=== PATIENT | female | born 1975 | race Caucasian/White ===

== ENCOUNTER → 2016-06-15 | Outpatient (CLI) | payer OTHER ==
[~2016-06-15] MED LIST: ALBUAER2 INH; ASPCH81; AZAT50TA17 PO; CALCTAB5 PO; CHOLTAB3 PO; CRF1 PO; CYM60 PO; GABA-113 PO; LSN25 PO; NXM/40 PO; QUET1TAB32 PO; SYN150 PO; TRAM-10 PO; TRAZ50TA35 PO; [UNRECOGNIZED DRUG - OTHER]
--- NOTE | 2016-06-15 09:54 | DIAGNOSTIC IMAGING REPORT ---
THYROID ULTRASOUND CLINICAL HISTORY: Hypothyroidism. Post ablation. Multiple thyroid nodules. COMPARISON STUDY: None. TECHNIQUE: Sonography of the thyroid gland was performed. FINDINGS: The right lobe measures 3.7 x 0.9 x 1.2 cm and the left lobe measures 4.2 x 1.1 x 1.2 cm. The gland is slightly small and heterogeneous. Note is made of a 2.9 x 1.7 x 1 cm solid nodule within the lower pole of the left lobe. This is slightly echogenic when compared to the background thyroid tissue. There is also a 0.9 x 0.5 x 0.4 cm right lobe thyroid nodule. The isthmus measures 0.2 cm in thickness. IMPRESSION: 1. Heterogeneous, somewhat diminutive thyroid gland. 2. Several thyroid nodules, including a 2.9 x 1.7 x 1 cm left lobe nodule. Ultrasound-guided fine needle aspiration of this nodule could be performed based on size criteria. Electronically signed by: Arnie Peña M.D. 06/15/2016 9:53 AM Dictated Date/Time: 06/15/2016 9:51 AM
== END | disposition home or self-care (01) ==
LOC: C.ULTR 08:57
PROVIDERS: ATTEND Internal Medicine Endocrinology, Diabetes & Metabolism
DX: E89.0 Postprocedural hypothyroidism (principal); E04.2 Nontoxic multinodular goiter

== ENCOUNTER → 2016-12-27 | Outpatient (CLI) | payer OTHER ==
[2016-12-27 14:58] LABS: ESTIMATED AVERAGE GLUCOSE 174 mg/dl; HA1C FLAG Normal (Normal)
[2016-12-27 15:09] LABS: ALT/SGPT 22 U/L (12-78); AST/SGOT 13 U/L (15-37); BLOOD UREA NITROGEN 8 mg/dl (7-18); BUN/CREATININE RATIO 10.2 (10-20); CARBON DIOXIDE 27 mmol/L (21-32); CHLORIDE 103 mmol/L (98-107); CREATININE 0.81 mg/dl (0.60-1.20); GLUCOSE 251 mg/dl (70-99); SODIUM 137 mmol/L (136-145)
[2016-12-27 15:20] LABS: ALKALINE PHOSPHATASE 63 U/L (45-117); THYROID STIMULATING HORMONE 0.594 uIu/ml (0.300-4.500)
== END | disposition home or self-care (01) ==
LOC: C.LAB1850 13:20
PROVIDERS: ATTEND Internal Medicine Endocrinology, Diabetes & Metabolism
DX: E78.5 Hyperlipidemia, unspecified (principal); R20.8 Other disturbances of skin sensation; E89.0 Postprocedural hypothyroidism; E11.42 Type 2 diabetes mellitus with diabetic polyneuropathy

== ENCOUNTER → 2017-05-24 | Outpatient (CLI) | payer OTHER ==
--- NOTE | 2017-05-24 08:02 | DIAGNOSTIC IMAGING REPORT ---
ULTRASOUND OF THE THYROID GLAND CLINICAL HISTORY: Thyroid nodule. Hypothyroidism post ablation. COMPARISON STUDY: Thyroid ultrasound dated 06/15/2016. TECHNIQUE: Real-time, grayscale, and color flow sonography of the thyroid gland is performed utilizing a high-frequency linear transducer. Images are reviewed in the transverse and longitudinal planes. FINDINGS: Right lobe: The right lobe of the thyroid gland is atrophic and heterogeneous in echotexture, measuring 3.4 x 1.0 x 0.9 cm. A hypoechoic nodule in the anterior midpole measures 0.7 x 0.4 x 0.5 cm (previously present but not discretely measured) Left lobe: The left lobe of the thyroid gland is atrophic and heterogeneous in echotexture, measuring 4.3 x 1.4 x 1.1 cm. A hypoechoic solid nodule in the lower pole measures 2.9 x 1.1 x 1.3 cm (previously measured 2.9 x 1.0 x 1.7 cm). This demonstrates minimal internal flow on color imaging. Isthmus: The thyroid isthmus is atrophic and heterogeneous, measuring 0.2 cm in AP diameter. IMPRESSION: 1. Atrophic and heterogeneous thyroid gland. 2. Bilateral thyroid nodules have not significantly changed from 06/15/2016. If not previously performed, fine-needle aspiration of the left sided nodule is recommended based on size criteria. Electronically signed by: Jamal Mckeon M.D. 05/24/2017 8:00 AM Dictated Date/Time: 05/24/2017 7:58 AM
== END | disposition home or self-care (01) ==
LOC: C.ULTR 07:28
PROVIDERS: ATTEND Internal Medicine Endocrinology, Diabetes & Metabolism
DX: E03.4 Atrophy of thyroid (acquired) (principal); E04.2 Nontoxic multinodular goiter; Z86.39 Personal history of other endocrine, nutritional and metabolic disease

== ENCOUNTER → 2017-10-19 | Outpatient (CLI) | payer OTHER ==
[2017-10-20 06:01] LABS: HEMOGLOBIN A1C 12.6 % (4.5-5.6)
== END | disposition home or self-care (01) ==
LOC: C.LAB1850 13:46
PROVIDERS: ATTEND Internal Medicine Endocrinology, Diabetes & Metabolism
DX: E78.5 Hyperlipidemia, unspecified (principal); E10.65 Type 1 diabetes mellitus with hyperglycemia

== ENCOUNTER 2020-09-19 05:57 | Observation (INO) ==
--- NOTE | 2020-09-05 16:12 | PAT Medication Instructions ---
Medication Instructions Date of Service September 05, 2020 Home Medications Medication Instructions Recorded insulin regular human 100 unit/mL See Rx Instructions .ROUTE 11/27/19 (3 mL) subcutaneous pen .COMPLEX #145 ml lidocaine 5 % topical patch 1 patch TOP DAILY #30 ea 11/27/19 pen needle, diabetic 32 gauge x #450 ea 12/03/19" Victoza 3-Teodoro 0.6 mg/0.1 mL (18 1.8 mg SUBCUT Q24H #9 ml NS 04/03/ mg/3 mL) subcutaneous pen injector ammonium lactate 12 % topical cream 1 appln TOP BID belimumab 120 mg intravenous solution 120 mg IV MONTHLY budesonide-formoterol HFA 160 mcg-4.5 mcg/actuation aerosol inhaler 2 puffs INH BID tramadol 50 mg tablet 50 - 100 mg PO Q6H PRN venlafaxine 150 mg capsule,extended release 24 hr 150 mg PO QAM venlafaxine 75 mg capsule,extended release 24 hr 75 mg PO QAM cholecalciferol (vitamin D3) 25 mcg (1,000 unit) capsule 6,000 units PO QAM insulin regular human 100 unit/mL (3 mL) subcutaneous pen See Rx Instructions .ROUTE .COMPLEX lidocaine 5 % topical patch 1 patch TOP DAILY Victoza 3-Teodoro 0.6 mg/0.1 mL (18 mg/3 mL) subcutaneous pen injector 1.8 mg SUBCUT Q24H insulin degludec 200 unit/mL (3 mL) subcutaneous pen 144 unit SQ QAM alpha lipoic acid 200 mg PO QAM atorvastatin 80 mg PO HS cyanocobalamin (vitamin B-12) [Vitamin B-12] 1,000 mcg PO QAM cyclobenzaprine [Flexeril] 10 mg PO TID PRN levothyroxine [Synthroid] 200 mcg PO QAM naproxen [Naprosyn] 500 mg PO BID PRN oxycodone-acetaminophen [Percocet] 1 tab PO QID PRN ropinirole 0.5 mg PO UD Continue as directed ammonium lactate 12 % topical cream 1 appln TOP BID belimumab 120 mg intravenous solution 120 mg IV MONTHLY lidocaine 5 % topical patch 1 patch TOP DAILY Victoza 3-Teodoro 0.6 mg/0.1 mL (18 mg/3 mL) subcutaneous pen injector 1.8 mg SUBCUT Q24H ASK your surgeon for instructions naproxen [Naprosyn] 500 mg PO BID PRN STOP taking 2 weeks before surgery (or as soon as possible if surgery is within 2 weeks) alpha lipoic acid 200 mg PO QAM DO NOT take the morning of surgery cholecalciferol (vitamin D3) 25 mcg (1,000 unit) capsule 6,000 units PO QAM insulin regular human 100 unit/mL (3 mL) subcutaneous pen See Rx Instructions .ROUTE .COMPLEX cyanocobalamin (vitamin B-12) [Vitamin B-12] 1,000 mcg PO QAM cyclobenzaprine [Flexeril] 10 mg PO TID PRN Take morning of surgery With a small sip of water, OTHERWISE NOTHING TO EAT OR DRINK AFTER MIDNIGHT: budesonide-formoterol HFA 160 mcg-4.5 mcg/actuation aerosol inhaler 2 puffs INH BID tramadol 50 mg tablet 50 - 100 mg PO Q6H PRN (okay to take up to 4 hours prior to surgery if needed) venlafaxine 150 mg capsule,extended release 24 hr 150 mg PO QAM venlafaxine 75 mg capsule,extended release 24 hr 75 mg PO QAM levothyroxine [Synthroid] 200 mcg PO QAM oxycodone-acetaminophen [Percocet] 1 tab PO QID PRN (okay to take up to 4 hours prior to surgery if needed) Take evening before surgery budesonide-formoterol HFA 160 mcg-4.5 mcg/actuation aerosol inhaler 2 puffs INH BID tramadol 50 mg tablet 50 - 100 mg PO Q6H PRN (if needed) atorvastatin 80 mg PO HS cyclobenzaprine [Flexeril] 10 mg PO TID PRN (if needed) oxycodone-acetaminophen [Percocet] 1 tab PO QID PRN (if needed) ropinirole 0.5 mg PO UD Insulin Dependent Diabetic Patients * Test your blood sugar the morning of surgery * If Blood Sugar is GREATER THAN 150, take HALF of your regular dose of: insulin degludec 200 unit/mL (3 mL) subcutaneous pen take 72 units * If Blood Sugar is LESS THAN 150, DO NOT TAKE ANY: insulin degludec 200 unit/mL (3 mL) subcutaneous pen Other Notes If you have any questions please call us at [phone] or [phone] or [phone] or [phone]
--- NOTE | 2020-09-08 12:44 | Anesthesiology Consultation ---
Date of Service September 08, 2020 Assessment & Plan (1) Encounter for pre-operative examination: COVID Status: As of 09/08 assessment, patient denies travel to endemic area, known exposure/sick contacts, or symptoms of COVID19. Patient advised to adhere to social distancing guidelines, wear a mask in public and avoid large crowds or unnecessary travel in the 2 weeks leading up to surgery. Preoperative COVID19 testing to be completed prior to surgery per surgeon's arrangements. Pat ient encouraged to be extra cautious/conscientious with COVID precautions between COVID testing and surgery. Abnormal CXR: Radiology recommending follow-up chest CT for clarification of abnormality (which Dr Le did order and schedule for the patient). However, patient had CTA on 09/03/2020 at [facility]. Discussed with radiologist, Dr. Mckeon. [facility] radiology attempting to send images to our radiology department for comparison and review. If unable to send them, Dr. Mckeon recommending that the [facility] radiologist re-review the CTA specifically evaluating for the abnormalities noted on our CXR. BSG AM DOS Chart Review Chart Review: Acceptable Risk for Surgery (pending radiology report) and Patient seen in Pre Admission Testing Teaching & Discussion Instructed NPO after midnight before surgery, except medications with 15 cc of water. Medication instructions provided according to the PAT guidelines. History Surgery Operation Date: 09/22/20 13:00 Proposed Procedures p C5-C6 Anterior Cervical Discectomy and Fusion, Spinal Cord Monitoring - Garrison Le, Height/Weight Height: 5 ft 10 in Weight: 113.9 kg Allergies Allergy/AdvReac Type Severity Reaction Status Date / Time No Known Drug Allergies Allergy Verified 09/05/20 07:37 Medications Home Medications Medication Instructions Recorded Confirmed Last Taken ammonium lactate 12 % topical cream 1 appln TOP BID 02/12/19 09/05/20 Unknown belimumab 120 mg intravenous 120 mg IV MONTHLY ea 02/12/19 09/05/20 Unknown solution budesonide-formoterol HFA 160 2 puffs INH BID 02/12/19 09/05/20 Unknown mcg-4.5 mcg/actuation aerosol inhaler tramadol 50 mg tablet 50 - 100 mg PO Q6H PRN 02/12/19 09/05/20 Unknown venlafaxine 150 mg 150 mg PO QAM 02/12/19 09/05/20 Unknown capsule,extended release 24 hr venlafaxine 75 mg capsule,extended 75 mg PO QAM 02/12/19 09/05/20 Unknown release 24 hr cholecalciferol (vitamin D3) 25 6,000 units PO QAM cap 07/26/19 09/05/20 Unknown mcg (1,000 unit) capsule insulin regular human 100 unit/mL See Rx Instructions .ROUTE 11/27/19 09/05/20 Unknown (3 mL) subcutaneous pen .COMPLEX #145 ml lidocaine 5 % topical patch 1 patch TOP DAILY #30 ea 11/27/19 09/05/20 Unknown pen needle, diabetic 32 gauge x #450 ea 12/03/19 07/25/20 Unknown " Victoza 3-Teodoro 0.6 mg/0.1 mL (18 1.8 mg SUBCUT Q24H #9 ml NS 04/03/20 09/05/20 Unknown mg/3 mL) subcutaneous pen injector insulin degludec 200 unit/mL (3 144 unit SQ QAM box 05/27/20 09/05/20 Unknown mL) subcutaneous pen alpha lipoic acid 200 mg PO QAM 09/05/20 09/05/20 Unknown atorvastatin 80 mg PO HS 09/05/20 09/05/20 Unknown cyanocobalamin (vitamin B-12) 1,000 mcg PO QAM 09/05/20 09/05/20 Unknown [Vitamin B-12] cyclobenzaprine [Flexeril] 10 mg PO TID PRN 09/05/20 09/05/20 Unknown levothyroxine [Synthroid] 200 mcg PO QAM 09/05/20 09/05/20 Unknown naproxen [Naprosyn] 500 mg PO BID PRN 09/05/20 09/05/20 Unknown oxycodone-acetaminophen [Percocet] 1 tab PO QID PRN 09/05/20 09/05/20 Unknown ropinirole 0.5 mg PO UD 09/05/20 09/05/20 Unknown Past Medical History Medical History Asthma Daily Symbicort, has not needed rescue ProAir in years Diabetic peripheral neuropathy associated with type 1 diabetes mellitus Dyslipidemia GERD (gastroesophageal reflux disease) History of COVID-19 06/2020 ache, pain, nausea, headache, loss smell and taste, quarantine had antibody infusion due to lupus History of hyperthyroidism Hypothyroidism, postablative Lupus Osteoarthritis PONV (postoperative nausea and vomiting) RLS (restless legs syndrome) Type 1 diabetes mellitus with complication Exercise / Class Metabolic Activity II 4-5 Yardwork/Stairs/Walk up hill (Mild SOB with 1 FOS but does not have to stop to catch breath, no chest pain, does stairs daily) Past Surgical History Surgical History History of lumbar fusion History of partial hysterectomy Hx laparoscopic cholecystectomy Hx of section x 2 Hx of tonsillectomy Hx of ventral hernia repair x 3 Past Anesthesia History No Hx of Anesthesia Complications (other than PONV) and No Family Hx of Anesthesia Complications (other than mother PONV) History of PONV No Hx of Motion Sickness and History of PONV Social History Smoking Status: Current every day smoker tobacco type: cigarettes Smoking cigarettes per day: 1/2 ppd Do You Dip or Chew Tobacco: No Hx Alcohol Use: No Hx Substance Use: No substance use type: does not use Review of Systems Pt denies any recent chest pain, shortness of breath, palpitations, cough, fever, URI, or uncontrolled acid reflux. Physical Exam Vital Signs BP: 130/82 P: 84bpm SPO2: 97% RA T: 98.4 F R: 16 Constitutional + obese ENMT Mouth: + macroglossia; no dental restorations, no chipped teeth and no loose teeth Thyromental Distance: > or= 3.5 Finger Breadths Mallampati Class: I Neck + limited neck extension (very) Respiratory normal respiratory effort, lungs clear to auscultation Cardiovascular RRR, no murmur, no edema Vessels: no carotid bruit Lab Results Anesthesia Preop Results Results Anesthesia Widget: PT 9.9 Seconds (9.0-12.0) 09/08/20 PTT 23.4 Seconds (21.0-31.0) 09/08/20 INR 1.0 (0.9-1.1) 09/08/20 HA1c 8.6 % (4.5-5.6) H 09/08/20 Urine Color Yellow 09/08/20 Urine Appearance Clear (Clear) 09/08/20 Urine pH 7.0 (4.5-7.5) 09/08/20 Urine Specific [place] 1.006 (1.000-1.030) 09/08/20 Urine Protein Negative (Negative) 09/08/20 Urine Glucose (UA) Negative (Negative) 09/08/20 Urine Ketones Negative (Negative) 09/08/20 Urine Blood Negative (Negative) 09/08/20 Urine Nitrite Negative (Negative) 09/08/20 Urine Bilirubin Negative (Negative) 09/08/20 Urine Urobilinogen Negative (Negative) 09/08/20 Urine Leukocyte Esterase Negative (Negative) 09/08/20 Blood Type O Positive 09/08/20 Antibody Screen NEGATIVE 09/08/20 Lab Comments: *Surgeons office made aware of elevated A1c. Testing Laboratory Results 09/03/20 WBC: 7.75 H/H: 13.3/39.7 PLATELETS: 321 SODIUM: 141 POTASSIUM: 3.9 CHLORIDE: 108 CO2: 28 BUN: 8.3 CREATININE: 0.74 GLUCOSE: 168 Electrocardiogram Date: 09/08/20 Findings: + NSR @ (82bpm) Chest X-Ray Date: 09/08/20 IMPRESSION: 1. No acute cardiopulmonary abnormality. 2. There is a lobulated density seen anteriorly at the lung bases on the lateral projection, likely on the left. 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 A chest CT is recommended for further assessment and to exclude underlying pulmonary or pleural-based lesion. ACT 112: Positive. There are findings on this exam that require communication between the performing entity and the patient following Patient Test Result Information Act ([place] Act 112) guidelines. Result called to Dr. Le's office, who ordered f/u chest CT for 09/15/20. Spoke to Dr. Mckeon of radiology re: these findings. Informed him that patient had chest CTA 09/03/2020. He suggested that if [facility] can send the images through the PACS system he will review those instead of having the patient come in for repeat chest CT. Spoke to [facility] radiology, they are to forward the images to [facility] (will be sent via mail as they are apparently unable to send via PACs system). Radiology notified to have Dr. Mckeon review images and append summary. Other Testing Chest CTA 09/03/2020 No evidence of pulmonary embolus or other acute intrathoracic abnormality.
[2020-09-19] MEDS ORDERED: ACETAMINOPHEN 500 MG TAB PO SCH (06:00)
[2020-09-19] MEDS ORDERED: CeleBREX 200 MG CAP PO SCH (06:00)
[2020-09-19] MEDS ORDERED: GABAPENTIN 900 MG DOSE PO SCH (06:00)
[2020-09-19] MEDS ORDERED: ceFAZolin 2000MG 2,000 MG/15 ML SYR IV SCH (06:00)
[2020-09-19] MEDS ORDERED: Scopolamine 1 MG TDSY TD SCH (06:00)
[2020-09-19] MEDS ORDERED: LR 15ML/HR IV SCH (06:45)
[2020-09-19] MEDS ORDERED: fentaNYL citrate 100 MCG/2 ML VIAL ONE ×2 (06:51→08:16)
[2020-09-19] MEDS ORDERED: LIDOCAINE 2% 2 ML VIAL/AMP(20MG/ML) INFIL ONE (06:51)
[2020-09-19] MEDS ORDERED: ONDANSETRON INJ 2 MG/ML 2 ML VIAL ONE ×2 (06:51→08:22)
[2020-09-19] MEDS ORDERED: PROPOFOL IV EMULSION 10 MG/ML 20 ML VIAL IV ONE (06:51)
[2020-09-19] MEDS ORDERED: MIDAZOLAM HCL 1 MG/ML 2ML VIAL ONE (06:51)
[2020-09-19] MEDS ORDERED: ROCURONIUM BROMIDE 10 MG/ML 5 ML VIAL IV ONE (06:51)
--- NOTE | 2020-09-19 07:34 | History & Physical Bridge Note ---
Date of Service September 19, 2020 History & Physical Bridge Note I have examined the patient, reviewed the History & Physical and in the interval since the performance of the History & Physical I have noted the following changes of clinical significance: no changes noted
--- NOTE | 2020-09-19 07:36 | History & Physical Report ---
Date of Service September 19, 2020 Assessment & Plan (1) Cervical stenosis of spinal canal: Admission and Anticipated Discharge Date Admission Date: C5-C6 anterior cervical discectomy and fusion History of Present Illness Chief Complaint: Neck and arm pain Primary Care Provider: Ghassan Valentine This is a 45-year-old female presents with chronic persistent neck and arm pain. Failing since course of nonoperative care she is here for surgical invention. Allergies Allergy/AdvReac Type Severity Reaction Status Date / Time No Known Drug Allergies Allergy Verified 09/19/20 06:28 Home Medications Medication Instructions Recorded Confirmed Type ammonium lactate 12 % topical cream 1 appln TOP BID PRN 02/12/19 09/19/20 History belimumab 120 mg intravenous 120 mg IV MONTHLY ea 02/12/19 09/19/20 History solution budesonide-formoterol HFA 160 2 puffs INH BID 02/12/19 09/19/20 History mcg-4.5 mcg/actuation aerosol inhaler tramadol 50 mg tablet 50 - 100 mg PO Q6H PRN 02/12/19 09/19/20 History venlafaxine 150 mg 150 mg PO QAM 02/12/19 09/19/20 History capsule,extended release 24 hr venlafaxine 75 mg capsule,extended 75 mg PO QAM 02/12/19 09/19/20 History release 24 hr cholecalciferol (vitamin D3) 25 6,000 units PO QAM cap 07/26/19 09/19/20 History mcg (1,000 unit) capsule insulin regular human 100 unit/mL See Rx Instructions .ROUTE 11/27/19 09/19/20 Rx (3 mL) subcutaneous pen .COMPLEX #145 ml lidocaine 5 % topical patch 1 patch TOP DAILY #30 ea 11/27/19 09/19/20 Rx pen needle, diabetic 32 gauge x #450 ea 12/03/19 07/25/20 Rx 5/32" insulin degludec 200 unit/mL (3 144 unit SQ QAM box 05/27/20 09/19/20 History mL) subcutaneous pen alpha lipoic acid 200 mg PO QAM 09/05/20 09/19/20 History atorvastatin 80 mg PO HS 09/05/20 09/19/20 History cyanocobalamin (vitamin B-12) 1,000 mcg PO QAM 09/05/20 09/19/20 History [Vitamin B-12] levothyroxine [Synthroid] 200 mcg PO QAM 09/05/20 09/19/20 History naproxen [Naprosyn] 500 mg PO BID PRN 09/05/20 09/19/20 History oxycodone-acetaminophen [Percocet] 1 tab PO QID PRN 09/05/20 09/19/20 History ropinirole 0.5 mg PO UD 09/05/20 09/19/20 History Victoza 3-Teodoro 0.6 mg/0.1 mL (18 1.8 mg SUBCUT Q24H #18 ml NS 09/15/20 09/19/20 Rx mg/3 mL) subcutaneous pen injector cyclobenzaprine 10 mg tablet 10 mg PO TID PRN #90 tab 09/17/20 09/19/20 Rx lisinopril 2.5 mg PO QPM 09/19/20 09/19/20 History Past Med/Surg History Medical History (Updated 09/19/20 @ 07:36 by Garrison Le DO) Asthma Daily Symbicort, has not needed rescue ProAir in years Diabetic peripheral neuropathy associated with type 1 diabetes mellitus Dyslipidemia GERD (gastroesophageal reflux disease) History of COVID-19 06/2020 ache, pain, nausea, headache, loss smell and taste, quarantine had antibody infusion due to lupus History of hyperthyroidism Hypothyroidism, postablative Lupus Osteoarthritis RLS (restless legs syndrome) Type 1 diabetes mellitus with complication Surgical History History of lumbar fusion History of partial hysterectomy Hx laparoscopic cholecystectomy Hx of section x 2 Hx of tonsillectomy Hx of ventral hernia repair x 3 PONV (postoperative nausea and vomiting) Social History Smoking Status: Current every day smoker packs per day: 0.5; Cigarettes Per Day: 1/2 ppd; Second Hand Exposure: No; Do You Dip or Chew Tobacco: No; Tobacco Cessation Education Requested by Patient: No Hx Alcohol Use: No Hx Substance Use: No Preferred Language: Khmer Communication Ability: Effective Handicraft Or Hobby Shop Manager Required: No Beliefs That Will Affect Care: None Current Living Situation: Spouse Other Information That Helps Us Care for You: No Feels Safe at Home: Yes Safety Concerns: Feels Safe At This Time Assistive Devices: Glasses Physical Exam Physical Exam: Patient is alert and oriented Heart regular rate and rhythm Lungs clear to auscultation Results & Data ([facility]) Vital Signs (Past 12 Hours) Vital Signs Temp Pulse Resp BP Pulse Ox 09/19/20 06:43 37 C 96 H 20 152/82 H 98
[2020-09-19] MEDS ORDERED: FLOSEAL HEMOSTATIC MATRIX 10ML TOP ONE (08:29)
[2020-09-19] MEDS ORDERED: NEOSTIGMINE METHYLSULFATE 1 MG/ML 10ML VIAL ONE (09:02)
[2020-09-19] MEDS ORDERED: GLYCOPYRROLATE 0.2 MG/ML VIAL ONE (09:02)
--- NOTE | 2020-09-19 09:02 | Operative Report ---
Post Operative Report Pre & Post Diagnosis Operation Date: 09/19/20 07:45 Pre-Op Diagnosis: Spinal Stenosis, Cervical Region Post-Op Diagnosis: Spinal Stenosis, Cervical Region I identified the patient and participated in the time-out.: Yes Procedure Operation Date: 09/19/20 07:45 Actual Procedures #1 Intracervical discectomy with bilateral foraminotomies C5-C6. #2 intracervical arthrodesis C5-C6. #3 placement of 7 mm spiral cage filled I factor at C5-C6. #4 application of bassett plate and screws across C5-C6. Surgeon Garrison Le, Lamination Assembler Wilson Mckenzie Estimated Blood Loss 10 Findings See Below Patient is 5 foot 10 inches tall weighing over 111 kg with a BMI in excess of 35. Patient's body habitus did create significant technical difficulty requiring her deepest retractors and longus instruments in order to perform her procedure. This at least 50% increase to the operative time. Specimens None Indications This is a 45-year-old female with significant arm radiculopathy after failing course of nonoperative care she is here for the above-mentioned procedure. Description of Procedure Patient met with identified informed consent obtained. Patient was then taken to the operative suite underwent ablation placed in the supine position Declan table with head Guardado jackson. All bony prominences well-padded eyes inspected to ensure no external proximal spine. This point anterior cervical spine was prepped and draped in a sterile fashion. The assistance of fluoroscopy verified the C5-C6 disc base and a transverse incision was placed along the right anterior aspect of the cervical spinal lines region. Sharp dissection with the assistance of bipolar electrocautery as well down to expose the anterior cervical spine at C5-C6. Several 10 retractors placed. Then performed a complete discectomy of C5-C6 out to the uncovertebral's bilaterally. This included removal of all posterior annular fibers longitudinal ligament bilateral foraminotomies performed addressing large disc herniation. Endplates then burred to subcortically bone and 7 mm spiral cage filled with I factor tapped in position. [place] distracting apparatus was removed all anterior osteophytes burred to a smooth cortical surface and a bassett plate and screws applied with the assistance of fluoroscopy. The incision was then copiously irrigated explored to ensure no damage to surrounding structures remaining bleeding. 10 round CONNOR drain inserted. The incision was then closed with 2 Vicryl in a fashion of 4 Monocryl for final closure. Steri-Strip sterile dressings placed. Patient will continue PACU stable condition. Please note spinal cord monitoring was utilized at the procedure no changes noted. Lastly Wilson Mckenzie was present at the entire procedure and all the patient positioning complex portions of the surgery and final skin closure. I attest to the content of the Intraoperative Record and any orders documented therein. Any exceptions are noted below.
[2020-09-19] MEDS ORDERED: ONDANSETRON INJ 2 MG/ML 2 ML VIAL IV PRN ×2 (09:03→10:46)
[2020-09-19] MEDS ORDERED: FLUMAZENIL 0.1 MG/1 ML 10 ML VIAL IV PRN (09:03)
[2020-09-19] MEDS ORDERED: LABETALOL HCL IV 5 MG/ML 20ML IV PRN (09:03)
[2020-09-19] MEDS ORDERED: HYDROmorphone INJ 1 MG/ML SYRINGE IV PRN (09:03)
[2020-09-19] MEDS ORDERED: PROMETHAZINE HCL 12.5 MG in SODIUM CHLORIDE 0.9% 50 ML IV PRN ×2 (09:03→10:46)
[2020-09-19] MEDS ORDERED: ATROPINE SULFATE 0.1 MG/ML 10ML SYR IV PRN (09:03)
[2020-09-19] MEDS ORDERED: NALOXONE HCL 0.4 MG/1 ML VIAL/CARP IV PRN ×2 (09:03→10:46)
[2020-09-19] MEDS ORDERED: ePHEDrine sulfate 50 MG/ML AMP IV PRN (09:03)
[2020-09-19] MEDS: fentaNYL citrate 100 MCG/2 ML VIAL IV PRN ×4 (09:23→09:38)
--- NOTE | 2020-09-19 10:15 | Anesthesiology Progress Note ---
Date of Service September 19, 2020 Anesthesia Post Procedure Vital Signs Vital Signs: Temp Pulse Pulse Resp BP BP Pulse Ox 09/19/20 10:05 36.4 C L 91 H 15 141/81 H 95 09/19/20 09:55 92 H 14 146/82 H 94 09/19/20 09:45 91 H 14 125/94 94 09/19/20 09:35 96 H 16 143/78 H 93 09/19/20 09:25 99 H 17 137/72 93 09/19/20 09:17 36.7 C 103 H 19 128/68 93 09/19/20 06:43 37 C 96 H 20 152/82 H 98 Pain Intensity Left Neck: Pain Intensity: 8 Transfer of Care Handoff Completed per policy Notes Mental Status: alert / awake / arousable Patient Amnestic to Procedure: Yes Nausea / Vomiting: adequately controlled Pain: adequately controlled Airway Patency, RR, SpO2: stable & adequate BP & HR: stable & adequate Hydration State: stable & adequate Anesthetic Complications: no major complications apparent
--- NOTE | 2020-09-19 10:24 | Fluoroscopy Report ---
FL cervical 2-3V CLINICAL HISTORY: ACDF C5-C6 COMPARISON STUDY: None. FLUOROSCOPY TIME: 12 seconds. FLUOROSCOPIC IMAGES: 3 FINDINGS: Fluoroscopy was provided during C5-C6 anterior discectomy and fusion. Hardware is intact. A sponge marker shown on the first two images is not present on the final image obtained at 9:13 AM. E ndotracheal tube is partially imaged. Surgical drain is in place. IMPRESSION: Fluoroscopy provided during C5-C6 anterior discectomy and fusion. ACT 112: Negative or not required by law. Electronically signed by: Arnie Peña M.D. 09/19/2020 10:22 AM
[2020-09-19] MEDS ORDERED: FAMOTIDINE 20 MG TAB PO PRN (10:46)
[2020-09-19] MEDS ORDERED: diphenhydrAMINE Capsule 25 MG CAP PO PRN (10:46)
[2020-09-19] MEDS ORDERED: LORazepam 0.5 MG/1 ML VIAL IV PRN (10:46)
[2020-09-19] MEDS ORDERED: METOCLOPRAMIDE HCL INJ 5 MG/ML 2 ML VIAL IV PRN (10:46)
[2020-09-19] MEDS ORDERED: hydrOXYzine HCl 25 MG TAB PO PRN (10:46)
[2020-09-19] MEDS ORDERED: MAGNESIUM HYDROXIDE SUSP 30 ML UDC PO PRN (10:46)
[2020-09-19] MEDS ORDERED: ONDANSETRON 4 MG OD TAB PO PRN (10:46)
[2020-09-19] MEDS ORDERED: traMADol HCL 50 MG TABLET PO PRN (10:46)
[2020-09-19] MEDS ORDERED: RACEPINEPHRINE 2.25% NEBU SOLN 0.5 ML VIAL INH PRN (10:46)
[2020-09-19] MEDS ORDERED: LORazepam 0.5 MG TAB PO PRN (10:46)
[2020-09-19] MEDS ORDERED: DO NOT ADMINISTER FLU VACCINE PRN (10:46)
[2020-09-19] MEDS ORDERED: dexAMETHasone 8 MG in SYRINGE 0 ML IV PRN (10:46)
[2020-09-19] MEDS ORDERED: ACETAMINOPHEN 1,000 MG/100 ML VIAL IV PRN (10:46)
[2020-09-19] MEDS ORDERED: SOD PHOSPHATE/SOD BIPHOSPHATE ENEMA 132 ML BTL PR PRN (10:46)
[2020-09-19] MEDS ORDERED: DO NOT ADMINISTER PNEUMOCOCCAL VACCINE PRN (10:46)
[2020-09-19] MEDS ORDERED: ACETAMINOPHEN 500 MG TAB PO PRN (10:46)
[2020-09-19] MEDS ORDERED: ALUMINUM/MAGNESIUM SUSP 30 ML UDC PO PRN (10:46)
[2020-09-19] MEDS: SODIUM CHLORIDE 0.9% 1000ML 1,000 ML IV SCH ×3 (10:50→23:41)
--- NOTE | 2020-09-19 11:58 | Hospitalist Consultation ---
Date of Consultation September 19, 2020 Assessment & Plan (1) Cervical stenosis of spinal canal: - s/p cervical discectomy of C5-C6 by Dr. Le on 09/19/20 - Pain management, bowel regimen and per the primary team - PT/OT consults, pt is planning on outpatient therapy - Follow am CBC to monitor for acute blood loss - Currently on oximask with O2 at 2L, does not wear O2 at baseline (2) Type 1 diabetes mellitus, uncontrolled: -Last A1c = 8.6 on 09/08/2020 -ISS with Accu-Cheks AC at bedtime -Consult glycemic pharmacy for glucose control in the setting of acute surgical procedure, intraoperative steroid -Takes Tresiba 200 unit/mL 136 U SQ every morning, Victoza 1.8 U SQ every morning, took half doses this morning. -Continue lisinopril 2.5 mg daily for kidney protection (3) Diabetic peripheral neuropathy associated with type 1 diabetes mellitus: -History of such, continue (4) Dyslipidemia: -Continue atorvastatin 80 mg at bedtime (5) Hypothyroidism, postablative: -Continue levothyroxine 200 mcg daily (6) Obesity: -BMI of 35.1, diet and exercise to be encouraged DVT PPx: - teds, scds CODE: DNR/DNI - discussed with the patient at bedside Dispo: From home, likely to remain in the hospital x 1-2 days Supervising Physician Co-Signing Physician Notes Care coordinated with Love Sarabia PA-C. Agree with able note. Patient seen and examined. Please refer to her notes for full details. Vital signs reviewed. Physical exam: General exam: Alert and oriented. Not in acute distress. Neck In neck collar CVS: S1 and S2 heard, regular rate and rhythm, no murmurs. RS: Clear to auscultation, no wheezing or crackles. ABD: Soft, bowel sounds present, nontender, no distention. ORGANIZATIONAL EFFECTIVENESS CONSULTANT: Nonfocal. EXT: No edema, no erythema. Labs: Reviewed. Assessment and plan: 45F with hx of DM, LANDRY, hypothyroidism s/p cervical surgery. Cervical disectomy on neck collar further mangemnet as per ortho. DM1 ISs long acting insulin as per pharmacy pharmacy consulted will monitor Other diagnosis and plan of care as per LAVERN Smith MD. History of Present Illness Reason for Consultation: Medical management Requesting Physician: Dr. Le Attending Physician: Garrison Le, DO History of Present Illness This is a 45-year-old female with PMHx of asthma, DM type I, diabetic peripheral neuropathy, HLD, history of Covid infection in June 2020, Lupus, GERD, osteoarthritis, restless leg syndrome, post ablative hypothyroidism who presents to the ER for elective intracervical discectomy with bilateral foraminotomies C5C6 by Dr. Le on 09/19/2020. Pt is doing ok after surgery, she reports her pain in the back of her neck is a 7/10 currently, although intermittently falls asleep during our conversation. She is able to wiggle her hands and her toes and move her legs without any difficulty. She has no decreased sensation to light touch. Patient reports that she lives at home with her and her 2 daughters. Patient notes she takes Tresiba 136 units daily, and Victoza 1.8 units daily normally, but today she took half these doses as directed prior to surgery. She does not wear any oxygen at baseline however is currently on 2 L via oxygen mask. Heart rate is elevated at 95 at bedside. She denies any chest pain, palpitation, flutter, or shortness of breath. She reports her mouth is dry. Denies other acute complain ts. Anticipates home physical therapy after hospital stay. Code status discussed as there was not a code ordered - she does NOT want to have CPR, intubation, etc in the event of cardiac arrest. Pt is DNR/DNI. Allergies Allergy/AdvReac Type Severity Reaction Status Date / Time No Known Drug Allergies Allergy Verified 09/19/20 06:28 Home Medications Medication Instructions Recorded Confirmed Type ammonium lactate 12 % topical cream 1 appln TOP BID PRN 02/12/19 09/19/20 History belimumab 120 mg intravenous 120 mg IV MONTHLY ea 02/12/19 09/19/20 History solution budesonide-formoterol HFA 160 2 puffs INH BID 02/12/19 09/19/20 History mcg-4.5 mcg/actuation aerosol inhaler tramadol 50 mg tablet 50 - 100 mg PO Q6H PRN 02/12/19 09/19/20 History venlafaxine 150 mg 150 mg PO QAM 02/12/19 09/19/20 History capsule,extended release 24 hr venlafaxine 75 mg capsule,extended 75 mg PO QAM 02/12/19 09/19/20 History release 24 hr cholecalciferol (vitamin D3) 25 6,000 units PO QAM cap 07/26/19 09/19/20 History mcg (1,000 unit) capsule insulin regular human 100 unit/mL See Rx Instructions .ROUTE 11/27/19 09/19/20 Rx (3 mL) subcutaneous pen .COMPLEX #145 ml lidocaine 5 % topical patch 1 patch TOP DAILY #30 ea 11/27/19 09/19/20 Rx pen needle, diabetic 32 gauge x #450 ea 12/03/19 07/25/20 Rx " insulin degludec 200 unit/mL (3 144 unit SQ QAM box 05/27/20 09/19/20 History mL) subcutaneous pen alpha lipoic acid 200 mg PO QAM 09/05/20 09/19/20 History atorvastatin 80 mg PO HS 09/05/20 09/19/20 History cyanocobalamin (vitamin B-12) 1,000 mcg PO QAM 09/05/20 09/19/20 History [Vitamin B-12] levothyroxine [Synthroid] 200 mcg PO QAM 09/05/20 09/19/20 History naproxen [Naprosyn] 500 mg PO BID PRN 09/05/20 09/19/20 History oxycodone-acetaminophen [Percocet] 1 tab PO QID PRN 09/05/20 09/19/20 History ropinirole 0.5 mg PO UD 09/05/20 09/19/20 History Victoza 3-Teodoro 0.6 mg/0.1 mL (18 1.8 mg SUBCUT Q24H #18 ml NS 09/15/20 09/19/20 Rx mg/3 mL) subcutaneous pen injector cyclobenzaprine 10 mg tablet 10 mg PO TID PRN #90 tab 09/17/20 09/19/20 Rx lisinopril 2.5 mg PO QPM 09/19/20 09/19/20 History oxycodone 5 mg PO Q6H PRN #20 tab 09/19/20 Rx tramadol 50 mg PO Q6H PRN #20 tab 09/19/20 Rx Patient History Medical History (Updated 09/19/20 @ 07:36 by Garrison Le DO) Asthma Daily Symbicort, has not needed rescue ProAir in years Diabetic peripheral neuropathy associated with type 1 diabetes mellitus Dyslipidemia GERD (gastroesophageal reflux disease) History of COVID-19 06/2020 ache, pain, nausea, headache, loss smell and taste, quarantine had antibody infusion due to lupus History of hyperthyroidism Hypothyroidism, postablative Lupus Osteoarthritis RLS (restless legs syndrome) Type 1 diabetes mellitus with complication Surgical History History of lumbar fusion History of partial hysterectomy Hx laparoscopic cholecystectomy Hx of section x 2 Hx of tonsillectomy Hx of ventral hernia repair x 3 PONV (postoperative nausea and vomiting) Social History Smoking Status: Current every day smoker packs per day: 0.5; Cigarettes Per Day: 1/2 ppd; Second Hand Exposure: No; Do You Dip or Chew Tobacco: No; Tobacco Cessation Education Requested by Patient: No Hx Alcohol Use: No Hx Substance Use: No Preferred Language: Romanian Communication Ability: Effective Commercial [employer] Head Required: No Beliefs That Will Affect Care: None marital status: Current Living Situation: Spouse Other Information That Helps Us Care for You: No Feels Safe at Home: Yes Safety Concerns: Feels Safe At This Time Assistive Devices: None Review of Systems Review of Systems: Constitutional: No fever, sweats or chills, as per HPI, + posterior neck pain status post surgery Eyes: No diplopia, no worsening or blurred vision ENT: normal hearing, no trouble swallowing Respiratory: No cough, sputum, dyspnea at rest or on exertion Cardiovascular: No chest pain, tightness or palpitations Abdomen: No pain, nausea, vomiting, diarrhea or constipation Musculoskeletal: No joint pain, calf pain, swelling Neurologic: No weakness, numbness/tingling, or balance problems Psychiatric: No anxiety or depression Skin: No rash or itch Physical Exam 2 Physical Exam: General: awakens to verbal stimuli but falls asleep intermittently during exam, able to answer all my questions, no apparent distress, 5' 10", obese BMI 35.1 Head: Normocephalic, atraumatic ENT: PERRL, EOMI, no pharyngeal exudate, mucous membranes dry, oximask in place Chest: Clear to auscultation, oximask in place on 2L, no adventitious breath sounds Cardiac: Sinus tach with heart rate in mid 90s, no murmur, no JVD, normal peripheral pulses, good capillary refill Abdominal: NABS x 4 quadrants, soft, nondistended, nontender to palpation, no rebound or guarding Extremities: Normal inspection, no peripheral edema or erythema, calfs nontender to palpation Psych: Normal mood and affect Neuro: AAO x 3, strength intact bilaterally and rated 5/5, no motor deficits, speech is clear, no peripheral sensory deficits Results & Data Results & Data ([facility]) Vital Signs (Past 12 Hours) Vital Signs Temp Pulse Pulse Pulse Resp BP BP 09/19/20 11:33 36.9 C 95 H 16 133/70 09/19/20 11:17 97 H 16 09/19/20 11:05 36.9 C 97 H 16 129/70 09/19/20 10:35 37.0 C 94 H 16 148/77 H 09/19/20 10:15 92 H 17 142/78 H 09/19/20 10:05 36.4 C L 91 H 15 141/81 H 09/19/20 09:55 92 H 14 146/82 H 09/19/20 09:45 91 H 14 125/94 09/19/20 09:35 96 H 16 143/78 H 09/19/20 09:25 99 H 17 137/72 09/19/20 09:17 36.7 C 103 H 19 128/68 09/19/20 06:43 37 C 96 H 20 152/82 H Pulse Ox Pulse Ox 09/19/20 11:33 97 09/19/20 11:17 95 09/19/20 11:05 92 09/19/20 10:35 95 95 09/19/20 10:15 95 09/19/20 10:05 95 09/19/20 09:55 94 09/19/20 09:45 94 09/19/20 09:35 93 09/19/20 09:25 93 09/19/20 09:17 93 09/19/20 06:43 98 Diagnostic Findings Cervical Spine X-Ray 09/19/20 07:45 [place] cervical 2-3V CLINICAL HISTORY: ACDF C5-C6 COMPARISON STUDY: None. FLUOROSCOPY TIME: 12 seconds. FLUOROSCOPIC IMAGES: 3 FINDINGS: Fluoroscopy was provided during C5-C6 anterior discectomy and fusion. Hardware is intact. A sponge marker shown on the first two images is not present on the final image obtained at 9:13 AM. Endotracheal tube is partially imaged. Surgical drain is in place. IMPRESSION: Fluoroscopy provided during C5-C6 anterior discectomy and fusion. ACT 112: Negative or not required by law. Electronically signed by: Arnie Peña M.D. 09/19/2020 10:22 AM
[2020-09-19] MEDS: oxyCODONE HCL IR 5 MG TAB (IMMEDIATE RELEASE) PO PRN ×2 (12:18→23:52)
[2020-09-19] MEDS ORDERED: PHARMACY GLYCEMIC MGMT CONSULT PRN (12:34)
[2020-09-19] MEDS: HYDROmorphone INJ 1 MG/ML SYRINGE IV PRN ×3 (13:05→19:53)
[2020-09-19] MEDS ORDERED: GLUCOSE 10 TABS/TUBE PO PRN (13:30)
[2020-09-19] MEDS ORDERED: INSULIN GLARGINE 100 UNIT/ML VIAL SC ONE ×3 (13:30→13:31)
[2020-09-19] MEDS ORDERED: GLUCOSE 40% GEL 15 GM TUBE PO PRN (13:30)
[2020-09-19] MEDS ORDERED: CARBOHYDRATES FOR HYPOGLYCEMIA PO PRN (13:30)
[2020-09-19] MEDS ORDERED: GLUCAGON FOR INJ 1 MG VIAL IM PRN (13:30)
--- NOTE | 2020-09-19 13:53 | Pharmacy Report ---
Pharmacy Glycemic Short Note 2 - Date of Service September 19, 2020 - Glycemic Short BSG Results (Last 24 hours): 09/19/20 09/19/20 09/19/20 06:30 09:26 12:13 POC Glucose 197 H 206 H 238 H OUTPATIENT ANTIDIABETIC REGIMEN: * Tresiba 144 units SC daily * Novolin R TIDM (up to 160 units/day) - patient stated that she typically guesses based on how much she eats but couldn't tell me specifics besides not exceeding ~40 units per injection * Victoza 1.8 mg SC daily * Patient follows with [place] end[facility] * HbA1c: 8.6% (09/08/20) ASSESSMENT: * JOHNNIE is a 45 year old female POD #0 s/p C5-C6 discectomy/fusion * Patient stated that she took 1/2 of her home Tresiba dose yesterday and took no insulin this morning * Seems to be a misunderstanding of the directions, as this 1/2 dose should have been given this morning not yesterday morning * Patient did state confidently that she did not give herself any insulin yet today * BSG postoperatively is 238 mg/dL - likely due to basal deficiency given inadequate dose yesterday and this morning * Will give 110 units of Lantus now with aggressive Novolog parameters and overnight checks * Hesitant to give full outpatient dose in light of clear liquid diet, despite inadequate basal dose yesterday PLAN FOR INPATIENT GLYCEMIC CONTROL: * Hold Tresiba * Basal insulin * Lantus 110 units SQ x 1 now (~75% of home dose) * Bolus insulin * NovoLog per scale ACHS or Q6hrs while NPO * Goal Range: Low 110 mg/dL - High 140 mg/dL * Correction Factor: 10 mg/dL/unit * Nutritional / Prandial insulin per carb ratio of 1 unit per 3 grams CHO consumed * 00,04 checks with same parameters PLAN FOR DISCHARGE: * tbd
[2020-09-19] MEDS: INSULIN ASPART 100 UNITS/ML 3 ML PEN SC SCH ×3 (14:01→21:00)
[2020-09-19] MEDS: ceFAZolin 2000MG 2,000 MG/15 ML SYR IV SCH ×2 (15:20→23:38)
[2020-09-19] MEDS: Scopolamine CHECK PATCH PLACEMENT SCH ×2 (15:29→23:38)
[2020-09-19] MEDS ORDERED: COUGH DROP (SUGAR FREE) LOZ 24 LOZ/1 BOX BUCCAL PRN (16:41)
[2020-09-19] MEDS: rOPINIRole HCL 0.25 MG TABLET PO SCH (19:54)
[2020-09-19] MEDS: DEXTROSE 50% 50 ML SYRINGE IV PRN (21:06)
[2020-09-19] MEDS: lisinopril 2.5 MG TAB PO SCH (21:57)
[2020-09-19] MEDS: ATORVASTATIN 40 MG TAB PO SCH (21:57)
[2020-09-19] MEDS: DOCUSATE SODIUM/SENNA 50/8.6MG TAB PO SCH (21:57)
[2020-09-20] MEDS: INSULIN ASPART 100 UNITS/ML 3 ML PEN SC SCH ×6 (00:01→21:26)
[2020-09-20] MEDS: HYDROmorphone INJ 0.5 MG/0.5 ML SYR IV PRN ×2 (04:44→08:01)
[2020-09-20] MEDS: POLYETHYLENE (MIRALAX) 17 GM PACK PO SCH ×3 (05:41→18:08)
[2020-09-20] MEDS: LEVOTHYROXINE SODIUM 200 MCG TABLET PO SCH (05:41)
[2020-09-20 06:01] LABS: Basophils # (auto) 0.01 K/uL (0-0.2); Basophils % (auto) 0.1 %; Hematocrit (blood only) 37.1 % (37-47); Hemoglobin 12.3 g/dL (12.0-16.0); Immature Granulocytes # (auto) 0.01 K/uL (0.00-0.02); Immature Granulocytes % (auto) 0.1 %; Lymphocytes % (auto) 33.1 %; Mean Corpuscular Hemoglobin 31.6 pg (25-34); Mean Corpuscular Hgb Conc 33.2 g/dL (32-36); Mean Corpuscular Volume 95.4 fL (80-100); Mean Platelet Volume 9.4 fL (7.4-10.4); Monocytes # (auto) 0.62 K/uL (0.11-0.59); Monocytes % (auto) 6.9 %; Neutrophils # (auto) 5.41 K/uL (1.4-6.5); Neutrophils % (auto) 59.8 %; Platelet Count 315 K/uL (130-400); RDW Coefficient of Variation 13.3 % (11.5-14.5); RDW Standard Deviation 46.2 fL (36.4-46.3); Red Blood Count 3.89 M/uL (4.2-5.4); White Blood Count 9.05 K/uL (4.8-10.8)
[2020-09-20] MEDS: DEXTROSE 50% 50 ML SYRINGE IV PRN ×3 (06:09→10:24)
[2020-09-20 06:26] LABS: BUN Creatinine Ratio 11.8 (10-20); Calcium 8.1 mg/dl (8.5-10.1); Creatinine Clr Calc Pharmacy 175.7 ml/min; Est GFR (African American) 131.2 ml/min; Est GFR (Non-African American) 113.2 ml/min; Magnesium 1.7 mg/dl (1.8-2.4); Potassium 3.3 mmol/L (3.5-5.1)
[2020-09-20 06:31] LABS: Estimated Average Glucose 194 mg/dl; Hemoglobin A1C 8.4 % (4.5-5.6)
[2020-09-20] MEDS: Scopolamine CHECK PATCH PLACEMENT SCH ×3 (07:48→23:53)
[2020-09-20] MEDS: VENLAFAXINE HCL XR 75 MG CAPXR PO SCH (08:08)
[2020-09-20] MEDS: FLUTICASONE/VILANTEROL 200/25MCG 14 PUFFS/INHALER INH SCH (08:08)
[2020-09-20] MEDS: VENLAFAXINE HCL XR 150 MG CAPXR PO SCH (08:08)
[2020-09-20] MEDS: CHOLECALCIFEROL 1,000 UNITS 25 MCG TAB PO SCH (08:08)
[2020-09-20] MEDS ORDERED: POTASSIUM CHLORIDE CRTAB 20 MEQ TABCR PO ONE (09:19)
[2020-09-20] MEDS ORDERED: MAGNESIUM SULFATE / D5W 1 GM/100 ML BAG IV ONE (09:45)
[2020-09-20] MEDS ORDERED: KETOROLAC 30 MG/ML VIAL IV ONE (10:33)
--- NOTE | 2020-09-20 10:36 | Orthopedic Progress Note ---
Date of Service September 20, 2020 Assessment & Plan (1) Cervical stenosis of spinal canal: Admission and Anticipated Discharge Date Admission Date: September 19, 2020 At this time we will insert a Fraire catheter secondary to urinary retention. We we will continue to encourage activity today advance her diet. Hopefully discharge home tomorrow. Subjective Patient complaining of neck and arm symptoms. She states it is improved but still very uncomfortable. She has no hoarseness but pain with swallowing. Physical Exam Physical Exam: Patient is in the chair at the bedside. She has good strength testing. Dressings in place. Results & Data ([facility]) Vital Signs (Past 12 Hours) Vital Signs Temp Pulse Resp BP BP Pulse Ox 09/20/20 09:09 36.7 C 77 20 157/82 H 97 09/20/20 07:45 77 18 96 09/20/20 07:30 37.1 C 75 16 125/74 97 09/20/20 05:35 36.9 C 72 16 107/56 L 92 09/20/20 03:35 36.9 C 77 18 112/69 95 09/20/20 02:00 82 18 96 09/20/20 01:35 36.9 C 78 16 113/75 93 09/19/20 23:35 36.6 C 83 18 131/80 95
--- NOTE | 2020-09-20 14:00 | Pharmacy Report ---
Pharmacy Glycemic Short Note 2 - Date of Service September 20, 2020 - Glycemic Short BSG Results (Last 24 hours): 09/19/20 09/19/20 09/19/20 14:00 17:05 21:00 Glucose POC Glucose 162 H 128 H 64 L* 09/19/20 09/19/20 09/19/20 21:22 22:19 22:48 Glucose POC Glucose 135 H 77 111 H 09/19/20 09/20/20 09/20/20 23:55 01:58 04:00 Glucose POC Glucose 130 H 74 86 09/20/20 09/20/20 09/20/20 05:18 06:02 06:24 Glucose 71 POC Glucose 67 L* 116 H 09/20/20 09/20/20 09/20/20 07:36 08:03 10:21 Glucose POC Glucose 63 L* 90 67 L* 09/20/20 09/20/20 10:54 12:17 Glucose POC Glucose 96 125 H OUTPATIENT ANTIDIABETIC REGIMEN: * Tresiba 144 units SC daily * Novolin R TIDM (up to 160 units/day) - patient stated that she typically guesses based on how much she eats but couldn't tell me specifics besides not exceeding ~40 units per injection * Victoza 1.8 mg SC daily * Patient follows with [place] [facility] * HbA1c: 8.6% (09/08/20) ASSESSMENT: 09/20 * Patient received total of 123 units of insulin yesterday, of which 110 units were basal insulin - this is a decrease from home insulin of 144 units * BSGs overnight trending down - D50% given. Low again this AM, could be related to poorer PO intake postop. Again corrected with D50% with lower BSGs today. Spoke with RN and patient only willing to use D50% for hypoglycemia correction * PO intake again remains very poor today. No breakfast and very small lunch. * Plan to reduce Lantus for today by ~50% from yesterday dose to hopefully avoid further hypoglycemia. Will need to monitor very closely if PO intake improves, dose will need titrate up 09/19 * VK is a 45 year old female POD #0 s/p C5-C6 discectomy/fusion * Patient stated that she took 1/2 of her home Tresiba dose yesterday and took no insulin this morning * Seems to be a misunderstanding of the directions, as this 1/2 dose should have been given this morning not yesterday morning * Patient did state confidently that she did not give herself any insulin yet today * BSG postoperatively is 238 mg/dL - likely due to basal deficiency given inadequate dose yesterday and this morning * Will give 110 units of Lantus now with aggressive Novolog parameters and overnight checks * Hesitant to give full outpatient dose in light of clear liquid diet, despite inadequate basal dose yesterday PLAN FOR INPATIENT GLYCEMIC CONTROL: * Hold Tresiba * Basal insulin * Lantus 50 units with dinner * Bolus insulin * NovoLog per scale ACHS or Q6hrs while NPO * Goal Range: Low 110 mg/dL - High 140 mg/dL * Correction Factor: 20 mg/dL/unit * Nutritional / Prandial insulin per carb ratio of 1 unit per 10 grams CHO consumed * 00,04 checks with same parameters PLAN FOR DISCHARGE: * tbd
--- NOTE | 2020-09-20 16:30 | Hospitalist Progress Note ---
Date of Service September 20, 2020 Assessment & Plan (1) Cervical stenosis of spinal canal: S/P Cervical discectomy of C5-C6 by Dr. Le on 09/19/20 Pain is controlled Activity, wound care, DVT prophylaxis as per primary team Monitor CBC Continue bowel regimen to prevent constipation (2) Type 1 diabetes mellitus, uncontrolled: Last A1c = 8.6 on 09/08/2020 Continue Insulin Therapy Appreciate Glycemic pharmacy help Monitor BGs Urinary retention Continue Fraire catheter for now Voiding trial prior to discharge (3) Diabetic peripheral neuropathy associated with type 1 diabetes mellitus: Continue home medications (4) Dyslipidemia: On atorvastatin (5) Hypothyroidism, postablative: Continue levothyroxine (6) Obesity: BMI of 35 DVT Px: As per Primary Admission and Anticipated Discharge Date Admission Date: September 19, 2020 Subjective Patient is seen and examined at bedside Patient had urinary retention, Fraire placed Neck pain at surgical site is controlled States having some difficulty with swallowing Denies chest pain, dyspnea, dizziness, nausea, abdominal pain Offers no other complaints Review of Systems Review of Systems: All systems reviewed & are unremarkable except as noted in HPI & below Physical Exam Physical Exam: Physical Exam: Vitals signs as noted above General Appearance:Obese, no apparent distress Head: normocephalic, Atraumatic Neck: +Neck Collar, + surgical site in dressing Eyes: normal inspection, EOMI Neck: supple, Trachea midline Respiratory/Chest: Normal breath sounds, CTA Cardiovascular: S1, S2, No murmur Abdomen/GI:Soft, Non tender, Bowel sounds present Extremities/Musculoskeletal:normal inspection, no edema Neurologic/Psych:AAOX3, grossly no focal neurological deficits Skin: normal color, warm Results & Data Results & Data ([facility]) Vital Signs (Past 12 Hours) Vital Signs Temp Pulse Pulse Resp BP BP Pulse Ox 09/20/20 16:00 36.8 C 79 18 142/84 H 97 09/20/20 14:48 92 H 16 98 09/20/20 12:00 36.6 C 74 20 124/79 97 09/20/20 11:15 72 18 99 09/20/20 09:09 36.7 C 77 20 157/82 H 97 09/20/20 07:45 77 18 96 09/20/20 07:30 37.1 C 75 16 125/74 97 09/20/20 05:35 36.9 C 72 16 107/56 L 92 Laboratory Results Short CBC 09/20/20 Range/Units 05:18 WBC 9.05 (4.8-10.8) K/uL Hgb 12.3 (12.0-16.0) g/dL Hct 37.1 (37-47) % Plt Count 315 (130-400) K/uL BMP 09/20/20 05:18 Sodium 139 Potassium 3.3 L Chloride 109 H Carbon Dioxide 29 BUN 6 L Creatinine 0.54 L Glucose 71 Calcium 8.1 L
[2020-09-20] MEDS ORDERED: INSULIN GLARGINE 100 UNIT/ML VIAL SC ONE (18:00)
[2020-09-20] MEDS: KETOROLAC TROMETHAMINE 15 MG/ML VIAL IV PRN (19:44)
[2020-09-20] MEDS: rOPINIRole HCL 0.25 MG TABLET PO SCH (19:45)
[2020-09-20] MEDS: DOCUSATE SODIUM/SENNA 50/8.6MG TAB PO SCH (21:22)
[2020-09-20] MEDS: ATORVASTATIN 40 MG TAB PO SCH (21:29)
[2020-09-20] MEDS: lisinopril 2.5 MG TAB PO SCH (21:29)
[2020-09-20] MEDS: oxyCODONE HCL IR 5 MG TAB (IMMEDIATE RELEASE) PO PRN (22:54)
[2020-09-21] MEDS ORDERED: INSULIN ASPART 100 UNITS/ML 3 ML PEN SC SCH
[2020-09-21] MEDS: POLYETHYLENE (MIRALAX) 17 GM PACK PO SCH (01:02)
[2020-09-21] MEDS: KETOROLAC TROMETHAMINE 15 MG/ML VIAL IV PRN (03:48)
[2020-09-21 05:49] LABS: Hematocrit (blood only) 37.2 % (37-47); Hemoglobin 12.5 g/dL (12.0-16.0); Mean Corpuscular Hemoglobin 31.6 pg (25-34); Mean Corpuscular Hgb Conc 33.6 g/dL (32-36); Mean Corpuscular Volume 93.9 fL (80-100); Mean Platelet Volume 9.4 fL (7.4-10.4); Platelet Count 304 K/uL (130-400); RDW Coefficient of Variation 13.1 % (11.5-14.5); RDW Standard Deviation 45.1 fL (36.4-46.3); Red Blood Count 3.96 M/uL (4.2-5.4); White Blood Count 9.34 K/uL (4.8-10.8)
[2020-09-21] MEDS: LEVOTHYROXINE SODIUM 200 MCG TABLET PO SCH (06:18)
[2020-09-21 06:22] LABS: BUN Creatinine Ratio 13.6 (10-20); Calcium 8.7 mg/dl (8.5-10.1); Creatinine Clr Calc Pharmacy 166.5 ml/min; Est GFR (African American) 128.9 ml/min; Est GFR (Non-African American) 111.2 ml/min; Magnesium 1.9 mg/dl (1.8-2.4); Potassium 3.5 mmol/L (3.5-5.1)
[2020-09-21] MEDS: oxyCODONE HCL IR 5 MG TAB (IMMEDIATE RELEASE) PO PRN (07:54)
[2020-09-21] MEDS ORDERED: bisacodyL 10 MG SUPP PR PRN (08:00)
[2020-09-21] MEDS: FLUTICASONE/VILANTEROL 200/25MCG 14 PUFFS/INHALER INH SCH (08:35)
[2020-09-21] MEDS: VENLAFAXINE HCL XR 150 MG CAPXR PO SCH (08:35)
[2020-09-21] MEDS: VENLAFAXINE HCL XR 75 MG CAPXR PO SCH (08:35)
[2020-09-21] MEDS: CHOLECALCIFEROL 1,000 UNITS 25 MCG TAB PO SCH (08:35)
[2020-09-21] MEDS: Scopolamine CHECK PATCH PLACEMENT SCH (08:38)
[2020-09-21] MEDS: INSULIN ASPART 100 UNITS/ML 3 ML PEN SC SCH (08:40)
--- NOTE | 2020-09-21 10:29 | Discharge Summary ---
Date of Service September 21, 2020 Admission HPI Per Admitting Provider This is a 45-year-old female presents with chronic persistent neck and arm pain. Failing since course of nonoperative care she is here for surgical invention. Principal Diagnosis Cervical disc condition with radiculopathy Discharge Data Allergies Allergy/AdvReac Type Severity Reaction Status Date / Time No Known Drug Allergies Allergy Verified 09/19/20 06:28 Consultations 09/19/20 10:46 Consult Hospitalist Routine Procedures Performed Operation Date: 09/19/20 07:45 Actual Procedures p C5-C6 Anterior Cervical Discectomy and Fusion, Under Spinal Cord Monitoring(Not Applicable) - Garrison Le DO Ordered Studies 09/19/20 07:45 FL cervical 2-3V Routine Hospital Course (1) Cervical stenosis of spinal canal: Patient went anterior cervical discectomy and fusion tolerated so was taken to orthopedic for postoperative. Postop and when she was struggling with some discomfort and elected to maintain 1 more day in the hospital. She was also struggling with urinary retention. The next day she was urinating without difficulty. Pain markedly improved. Swallowing well. No hoarseness. Excellent strength testing. Subsequent discharge home. Discharge orders instructions from the chart for further review. Total Time Total Time Spent Total Time Spent (In Minutes): 20 minutes Discharge Plan Discharge Items Patient Disposition: Home - Self-Care Reason For Visit: Spinal Stenosis, Cervical Region Discharge Diagnosis: Cervical disc condition with radiculopathy Activity: Resume your previous activity Non-emergency contact: Primary Care Provider Call non-emergency contact if: you have any medication questions Follow-up/Referrals: Ghassan Valentine [Primary Care Provider] - Diet: Regular Addtl Attending Provider Instructions: ACTIVITY RECOMMENDATIONS: SELF CARE INSTRUCTIONS AFTER CERVICAL FUSIONS 1. No smoking. Smoking drastically decreases the chance of a solid fusion. 2. No bending, lifting more than 5 pounds, or twisting (roll like a log when turning in bed). 3. You may shower 3 days after surgery. Thoroughly dry wound. Do not soak in the tub. 4. Cervical collar: Must be worn at all times including sleeping. You may remove the brace only to bath, eat and if you are sitting in a recliner. 5. Please walk as much as you can for exercise. Gradually increase the distance that you walk as your endurance increases. SPECIAL CARE INSTRUCTIONS: VERY IMPORTANT TO READ AND REVIEW A. Do not take any anti-inflammatory medications (i.e. Indocin, Advil, Aspirin, Naprosyn, Aleve, Motrin, etc.) as these may inhibit the chance of a solid fusion. Tylenol is okay to take. B. Your surgical incision has been closed with a cosmetic suture under the skin that will dissolve in about 6 weeks. In 14 days, you can use a pair of clean scissors and cut the suture that is left outside of the skin at the ends of your incision. C. Complications are uncommon, but please contact us if you have any signs or symptoms of: 1. wound infection (fever higher than 102.5 degrees F, redness, separation of wound, drainage, or increasing pain from the incision) 2. blood clots in legs (pain, swelling, redness and warmth in legs) 3. urinary tract infection (fever higher than 102.5 degrees, burning upon urination or increased frequency of urination) 4. nerve problems (inability to walk on your toes or heels, numbness, loss of bowel or bladder control) 5. any other symptoms that concern you. D. Please call the office at if you have any concerns or questions about your operation or recovery. MANAGING PAIN AFTER SPINAL SURGERY 1. Narcotic medication is intended for short-term use and will be provided for surgical pain. Surgical pain usually lasts for a period of 4-6 weeks. Narcotic medication includes Percocet, Vicodin, Darvocet, Tylenol #3 or Lortab. 2. Longer-term pain is more appropriately treated with non-narcotic medication such as Tylenol ES. 3. Muscle spasm is not appropriately treated with narcotics. Muscle relaxers such as Soma, Flexeril or Skelaxin can be used along with Tylenol ES. 4. Remember that we all live with some "aches and pains". This is not unusual or uncommon after an injury or as we get older. 5. We will provide appropriate medication within the normal guidelines of their prescribed use. We will also be very cautious and aware of potential abuse and extended duration of patients' medication needs. 6. Please allow 2-3 days to process refills. Prescriptions will not be mailed but must be picked up at the office. FOLLOW UP VISIT: Keep your scheduled follow-up appointment. Any questions, please call the office at . Pending Studies at Discharge: No Stand-Alone Forms: My [facility] [employer], Smoking Cessation Medications and DC Order Prescriptions: New tramadol 50 mg tablet 50 mg PO Q6H PRN (Reason: pain, moderate) Qty: 20 RF: 0 oxycodone 5 mg tablet 5 mg PO Q6H PRN (Reason: pain, severe) Qty: 20 RF: 0 Continued (DME) pen needle, diabetic [BD Kimberly 2nd Gen Pen Needle] 32 gauge x 5/32" needle See Rx Instructions .ROUTE .MEDSUPPLY Qty: 450 RF: 3 Victoza 3-Teodoro 0.6 mg/0.1 mL (18 mg/3 mL) pen injector 1.8 mg subcut Q24H Qty: 18 RF: 5 cyclobenzaprine 10 mg tablet 10 mg PO TID PRN (Reason: Pain) Qty: 90 RF: 1 ammonium lactate 12 % cream 1 appln TOP BID PRN (Reason: Dry Skin) RF: 0 Benlysta 120 mg recon soln 120 mg IV MONTHLY RF: 0 Symbicort 160-4.5 mcg/actuation HFA aerosol inhaler 2 puffs INH BID RF: 0 tramadol 50 mg tablet 50 - 100 mg PO Q6H PRN (Reason: pain) RF: 0 venlafaxine 150 mg capsule,extended release 24hr 150 mg PO QAM RF: 0 venlafaxine 75 mg capsule,extended release 24hr 75 mg PO QAM RF: 0 cholecalciferol (vitamin D3) 25 mcg (1,000 unit) capsule 6,000 units PO QAM RF: 0 Tresiba FlexTouch U-200 200 unit/mL (3 mL) insulin pen 144 unit SQ QAM RF: 0 lidocaine [Lidoderm] 5 % adhesive patch,medicated 1 patch TOP DAILY Qty: 30 RF: 0 Novolin R Flexpen 100 unit/mL (3 mL) insulin pen See Rx Instructions .ROUTE .COMPLEX Qty: 145 RF: 3 cyanocobalamin (vitamin B-12) [Vitamin B-12] 1,000 mcg Tablet 1,000 mcg PO QAM RF: 0 alpha lipoic acid 200 mg Tablet 200 mg PO QAM RF: 0 atorvastatin 80 mg tablet 80 mg PO HS RF: 0 ropinirole 0.25 mg tablet 0.5 mg PO UD RF: 0 levothyroxine [Synthroid] 200 mcg tablet 200 mcg PO QAM RF: 0 lisinopril 2.5 mg 2.5 mg PO QPM RF: 0 Discontinued oxycodone-acetaminophen [Percocet] 5-325 mg Tablet 1 tab PO QID PRN (Reason: Pain) RF: 0 naproxen [Naprosyn] 500 mg Tablet 500 mg PO BID PRN (Reason: Pain) RF: 0 Discharge Orders: Discharge Order (Routine); Ordered 09/21/20 Ordered By: Garrison Todd/Other Patient Handouts: A1C Admission Data Admit Date/Time: 09/19/20 09:17 Attending Provider: Garrison Le Admit Provider: Garrison Le Primary Care Provider: Ghassan Valentine Other Providers: Curry Mcrae
[2020-09-21] MEDS ORDERED: INSULIN GLARGINE SOLOSTAR 100 UNITS/ML 3 ML PEN SC ONE (12:00)
[2020-09-22] MEDS ORDERED: CeleBREX 200 MG CAP PO SCH (06:00)
[2020-09-22] MEDS ORDERED: ceFAZolin 2000MG 2,000 MG/15 ML SYR IV SCH (06:00)
[2020-09-22] MEDS ORDERED: GABAPENTIN 900 MG DOSE PO SCH (06:00)
[2020-09-22] MEDS ORDERED: Scopolamine 1 MG TDSY TD SCH (06:00)
[2020-09-22] MEDS ORDERED: ACETAMINOPHEN 500 MG TAB PO SCH (06:00)
[2020-09-22] MEDS ORDERED: LR 15ML/HR IV SCH (06:00)
[2020-09-22] MEDS ORDERED: Scopolamine CHECK PATCH PLACEMENT SCH (16:00)
== END 2020-09-21 11:18 | disposition home or self-care (01) ==
LOC: ASU 05:57 → 3E 09:17 → INTOOBSV 09:17

== ENCOUNTER 2022-12-28 15:53 | Observation (INO) ==
--- NOTE | 2022-12-28 15:57 | ED Triage Note ---
Date of Service December 28, 2022 History of Present Illness This patient was briefly evaluated while in triage. An abbreviated physical exam was performed. This patient is a 47-year-old Female who presents to the ED for evaluation of chest congestion, cough, SOB/wheezing headaches started last Tuesday. using inhalers without relief family members ill with similar symptoms sat 80s at [facility], given duoneb and o2 Physical Exam GENERAL: NAD CARDIOVASCULAR: RRR RESPIRATORY: diminished throughout with few wheezes, poor effort ABDOMEN: BS x 4. Nontender to palpation. Initial orders for labs and / or imaging were placed and patient was placed in the waiting area until a bed is available. Please see further documentation for the full ED course. MDM / Impression Impression Impression: Shortness of breath, Reactive airway disease, Hypoxia
[2022-12-28] MEDS ORDERED: ALBUT/IPRATROP 3MG/0.5MG NEB 3 ML VIAL NEB ONE (16:09)
--- NOTE | 2022-12-28 17:09 | XRay Report ---
XR chest 2V PA/lateral HISTORY: Dyspnea COMPARISON: Chest 09/08/2020. FINDINGS: No pneumothorax. No pleural effusions. Cervical spinal fusion hardware is noted. The cortex was normal in size. There are low lung volumes. No acute fractures identified. A few scattered linea r and patchy densities within the right middle lobe and lingula. These have progressed in the interva l. This is best seen on the lateral view. IMPRESSION: A few scattered linear and patchy densities within the right middle lobe and lingula which have progr essed in the interval. This could be due to a developing pneumonia, scarring, or atelectasis. ACT 112: Negative or not required by law. Electronically signed by: Geronimo Vaca M.D. 12/28/2022 5:08 PM
[2022-12-28] MEDS ORDERED: dexAMETHasone**PF** 10 MG/ML VIAL IV ONE (17:30)
[2022-12-28] MEDS ORDERED: ACETAMINOPHEN 500 MG TAB PO STA (17:31)
--- NOTE | 2022-12-28 18:25 | Emergency Department Note ---
Impression & Plan Shortness of breath, Reactive airway disease, Hypoxia ED Provider Note NAME: MAHENDRA MCKEON AGE: 47 SEX: Female INFORMANT: Patient ED PROVIDER(S): Monty Castillo MD CHIEF COMPLAINT: Shortness of breath PLAN: Disposition: Admitted Outpatient prescription management: none Referral: None MEDICAL DECISION MAKING: Patient presented with shortness of breath and oxygen requirements. She has had flu symptoms for a week. Patient has a history of significant reactive airway disease. She was doing better after a treatment prehospital. She had an hour- long treatment started here. She was given IV Decadron and IV magnesium. Patient was feeling somewhat better. She was given Tylenol and Hycodan for symptom control. She did have a headache. The patient has what looks like to be an infiltrate on chest x-ray. She was given IV Rocephin and doxycycline. Patient had a bio fire test performed. Patient has a significant leukocytosis on CBC. Chemistry panel and troponin were unremarkable CT imaging was ordered. Patient underwent the CAT scan. She does have consolidation noted. Groundglass opacities also noted. Patient had an enterovirus/rhinovirus on bio fire PCR. Given her oxygen requirement and reactive airway history coupled with the findings today the patient will need further management in the hospital. Consultation was made with Dr. Sha Dillon, [facility] hospitalist service. Case was discussed and diagnostics were reviewed. Patient was evaluated in the ER and admitted for further management. Care/management discussed with: Discussed with agricultural equipment sales manager Level of care consideration(s): After review of the information above and other included data, I feel the patient requires admission Triage Nursing notes: reviewed and agree them. Vital Signs: reviewed and remarkable for oxygen requirement Additional History obtained from: none Chronic Medical/Social Conditions affecting care: Asthma Prior /Outside records reviewed: none Differential Diagnosis: Reactive airway disease, pneumonia, pneumothorax, COPD, CHF, infections, cardiac ischemia, pulmonary embolism, musculoskeletal, gastrointestinal, as well as other pathologies. Diagnostics, independently interpreted by me: ECG: Twelve-lead ECG was a normal sinus rhythm at 89 bpm. Poor R wave progression. No ST elevation or depression. Cardiac Monitoring: Cardiac monitoring ordered by me: The patient was placed on continuous cardiac monitoring and observed. It revealed a normal sinus rhythm at 96 beats per minute without ectopy or evidence of dysrhythmia. Medical decision rules: none Imaging studies: Chest x-ray and CT scan as above. I refer you to the EMR for further details. HPI: The patient is a 47-year-old female arrives for evaluation of shortness of breath patient notes flu symptoms that started a week ago. The patient went to her outpatient clinic and was found to have O2 saturations in the 80s. She was placed on 6 L nasal cannula. She was given a nebulizer treatment by EMS. Patient was brought to the emergency department here and was titrated down to 4 L nasal cannula. She was still very wheezy. She has a significant history of asthma and near respiratory failure back in 1997 requiring [facility] transfer. Patient has not been intubated before. She notes cough and congestion recently. She notes some chest discomfort with breathing and coughing. Pt denies LOC, headache, fevers, chills, diaphoresis, visual changes, neck pain, nausea, vomiting, abdominal pain, back pain, melena, hematochezia, urinary symptoms, numbness, weakness, lymphadenopathy, rash, or other complaints.. PAST MEDICAL HISTORY: See Below, asthma PAST SURGICAL HISTORY: See Below, SOCIAL HISTORY: See Below, non-smoker HOME MEDICATIONS: See Below ALLERGIES: See Below VITALS: See Below PHYSICAL EXAMINATION: GENERAL: Awake, alert, uncomfortable-appearing, in no distress HENT: Normocephalic, atraumatic. Oropharynx unremarkable. EYES: Normal conjunctiva. Sclera non-icteric. NECK: Inspection normal. Non-tender. Supple. No nuchal rigidity. FROM. No masses. RESPIRATORY: Scattered inspiratory and expiratory wheezes. No rales. Increased respiratory effort. CARDIAC: Normal rate. Normal rhythm. No murmurs. No rubs. Extremities warm and well perfused. Pulses equal. No JVD. GI: Soft, non-distended. No tenderness to palpation. No rebound or guarding. No masses. MUSCULOSKELETAL: Atraumatic. Chest examination reveals no tenderness. The back is symmetrical on inspection without obvious abnormality. There is no CVA tende rness to palpation. No joint edema. LOWER EXTREMITIES: Calves are equal size bilaterally and non-tender. No edema. No discoloration. NEURO: Normal sensorium. No sensory or motor deficits noted. SKIN: No rash or jaundice noted. PROCEDURES: none CRITICAL CARE: none OBSERVATION NOTE: none Past Med/Surg History Medical History (Updated 12/28/22 @ 21:29 by Emilie Booth PA-C) Asthma Daily Symbicort, has not needed rescue ProAir in years Diabetic peripheral neuropathy associated with type 1 diabetes mellitus Dyslipidemia GERD (gastroesophageal reflux disease) History of COVID-19 06/2020 ache, pain, nausea, headache, loss smell and taste, quarantine had antibody infusion due to lupus History of hyperthyroidism Hypothyroidism, postablative Lupus Osteoarthritis RLS (restless legs syndrome) Surgical History History of lumbar fusion History of partial hysterectomy Hx laparoscopic cholecystectomy Hx of section x 2 Hx of tonsillectomy Hx of ventral hernia repair x 3 PONV (postoperative nausea and vomiting) Family History (Updated 12/28/22 @ 20:34 by Emilie Booth PA-C) Other Breast cancer Social History Smoking Status: Never smoker packs per day: 0.5; Cigarettes Per Day: 1/2 ppd; Second Hand Exposure: No; Do You Dip or Chew Tobacco: No; Hx Alcohol Use: No Hx Substance Use: No Preferred Language: Faroese Communication Ability: Effective Measurement Psychologist Required: No Beliefs That Will Affect Care: None marital status: Current Living Situation: Spouse Feels Safe at Home: Yes Assistive Devices: None Allergies Allergies Allergy/AdvReac Type Severity Reaction Status Date / Time No Known Drug Allergies Allergy Verified 07/29/22 11:23 Home Meds Home Medications Medication Instructions Recorded Confirmed ammonium lactate 12 % topical cream 1 appln topical BID PRN Dry Skin 02/12/19 12/28/22 belimumab 120 mg intravenous 120 mg IV MONTHLY 02/12/19 12/28/22 solution (Benlysta) budesonide-formoterol HFA 160 2 puffs inhalation BID 02/12/19 12/28/22 mcg-4.5 mcg/actuation aerosol inhaler (Symbicort) tramadol 50 mg tablet 50 mg PO BID PRN pain 02/12/19 12/28/22 venlafaxine 150 mg 150 mg PO QAM 02/12/19 12/28/22 capsule,extended release 24 hr venlafaxine 75 mg capsule,extended 75 mg PO QAM 02/12/19 12/28/22 release 24 hr cholecalciferol (vitamin D3) 25 2,000 units PO QAM 07/26/19 12/28/22 mcg (1,000 unit) capsule blood-glucose sensor (Dexcom G6 04/09/21 12/28/22 Sensor device) blood-glucose transmitter (Dexcom 04/09/21 12/28/22 G6 Transmitter device) pen needle, diabetic 32 gauge x 04/09/21 12/28/22 5/32" (BD Kimberly 2nd Gen Pen Needle) atorvastatin 80 mg tablet 80 mg PO DAILY 12/28/22 12/28/22 Previous Rx's Medication Instructions Recorded insulin degludec 200 unit/mL (3 100 unit (0.5 mL) subcut QAM 90 03/24/22 mL) subcutaneous pen ( #45 mL FlexTouch U-200 insulin) insulin regular human 100 unit/mL See Rx Instructions .Route 06/30/22 injection solution (Novolin R .COMPLEX #30 mL Regular U-100 Insulin) semaglutide 1 mg/dose (4 mg/3 mL) 1 mg (0.75 mL) subcut .q7 30 days 11/24/22 subcutaneous pen injector #3 mL levothyroxine 200 mcg tablet 200 mcg PO QAM #90 tabs 12/10/22 (Synthroid) Results & Data (ED) Vital Signs Vital Signs - 24 hr 12/28/22 16:06 12/28/22 17:16 12/28/22 17:17 Temperature 36.5 C Temperature Source Temporal Artery Scan Pulse Rate 98 H 93 H Pulse Rate [Apical] 92 H Respiratory Rate 20 22 Respiratory Effort / Characteristics Non-Labored Spontaneous Spontaneous SOB on Exertion Respiratory Depth Normal Blood Pressure 115/77 Blood Pressure [Right Arm] Blood Pressure Mean 89 Blood Pressure Mean [Right Arm] Pulse Oximetry 95 93 Oxygen Delivery Method Room Air Nasal Cannula Oxygen Flow Rate 4 Sepsis Recent Fever Within 48 Hours No Sepsis New/Unexplained Change in Mental Status No Sepsis Action Taken by Nursing No Action Required 12/28/22 18:48 12/28/22 18:48 12/28/22 18:48 Temperature Temperature Source Pulse Rate 98 H Pulse Rate [Apical] 93 H Respiratory Rate 22 22 Respiratory Effort / Characteristics Respiratory Depth Blood Pressure Blood Pressure [Right Arm] 112/57 L Blood Pressure Mean Blood Pressure Mean [Right Arm] 75 Pulse Oximetry 98 98 98 Oxygen Delivery Method Nebulizer Nebulizer Nebulizer Oxygen Flow Rate 5 Sepsis Recent Fever Within 48 Hours Sepsis New/Unexplained Change in Mental Status Sepsis Action Taken by Nursing 12/28/22 20:00 Temperature Temperature Source Pulse Rate Pulse Rate [Apical] 96 H Respiratory Rate 20 Respiratory Effort / Characteristics Respiratory Depth Blood Pressure Blood Pressure [Right Arm] 133/59 L Blood Pressure Mean Blood Pressure Mean [Right Arm] 83 Pulse Oximetry 91 Oxygen Delivery Method Room Air Oxygen Flow Rate Sepsis Recent Fever Within 48 Hours Sepsis New/Unexplained Change in Mental Status Sepsis Action Taken by Nursing Laboratory Data 12/28/22 18:16 12/28/22 18:16 Lab Results 12/28/22 12/28/22 12/28/22 Range/Units 18:16 18:16 18:16 WBC 18.11 H (4.8-10.8) K/ul RBC 4.57 (4.20-5.40) M/uL Hgb 14.7 (12.0-16.0) g/dl Hct 43.4 (37.0-47.0) % MCV 95.0 (80.0-100.0) fL MCH 32.2 (25.0-34.0) pg MCHC 33.9 (32.0-36.0) g/dL RDW Std Deviation 44.5 (36.4-46.3) fL RDW Coeff of Tiffany 12.8 (11.5-14.5) % Plt Count 341 (130-400) K/uL MPV 9.9 (9.4-12.4) fL Immature Gran % (Auto) 0.4 % Neut % (Auto) 73.9 % Lymph % (Auto) 18.3 % Roosevelt % (Auto) 6.5 % Eos % (Auto) 0.6 % Baso % (Auto) 0.3 % Neut # (Auto) 13.41 H (1.40-6.50) K/uL Lymph # (Auto) 3.31 (1.20-3.40) K/uL Roosevelt # (Auto) 1.17 H (0.11-0.59) K/uL Eos # (Auto) 0.10 (0.00-0.50) K/uL Baso # (Auto) 0.05 (0.00-0.20) K/uL Immature Gran # (Auto) 0.07 (0.01-0.20) K/uL PT 10.9 (9.0-12.0) Seconds INR 1.0 (0.9-1.1) APTT 24.8 (21.0-31.0) Seconds PTT Ratio 0.9 D-Dimer 310 (0-500) ug/L FEU Sodium 140 (136-145) mmol/L Potassium 3.6 (3.5-5.1) mmol/L Chloride 104 (98-107) mmol/L Carbon Dioxide 28 (21-32) mmol/L Anion Gap 8 (3-11) BUN 12 (6-23) mg/dl Creatinine 0.80 (0.6-1.2) mg/dl Est Cr Clr Drug Dosing 114.5 ml/min Est GFR ( Amer) 101.0 ml/min Est GFR (Non-Af Amer) 87.2 ml/min BUN/Creatinine Ratio 15.0 (10-20) Glucose 203 H (70-99(Fasting)) mg/dl Calcium 9.5 (8.6-10.3) mg/dl Magnesium 1.7 (1.7-2.4) mg/dl Total Bilirubin 1.1 H (0.2-1.0) mg/dl AST 18 (13-39) U/L ALT 23 (7-52) U/L Alkaline Phosphatase 51 (34-104) U/L Troponin I High Sens 3.2 (0-14) pg/ml Total Protein 7.4 (6.0-8.3) gm/dl Albumin 4.2 (3.4-5.0) gm/dl Globulin 3.2 (2.5-4.0) gm/dl Albumin/Globulin Ratio 1.3 (0.9-2) Procalcitonin (0-0.5) ng/ml Adenovirus (PCR) (NotDetected) B. pertussis DNA (PCR) (NotDetected) B.parapertussis DNA PCR (NotDetected) C. pneumoniae DNA (PCR) (NotDetected) Coronavirus OC43 (PCR) (NotDetected) Coronavirus HKU1 (PCR) (NotDetected) Coronavirus 229E (PCR) (NotDetected) SARS-CoV-2 (PCR) (NotDetected) Coronavirus NL63 (PCR) (NotDetected) Human Metapneumovir PCR (NotDetected) Influenza Type A (PCR) (NotDetected) Influenza Type B (PCR) (NotDetected) M. pneumoniae (PCR) (NotDetected) Parainfluenza 1 (PCR) (NotDetected) Parainfluenza 2 (PCR) (NotDetected) Parainfluenza 3 (PCR) (NotDetected) Parainfluenza 4 (PCR) (NotDetected) RSV (PCR) (NotDetected) Entero/Rhino (PCR) (NotDetected) 12/28/22 12/28/22 Range/Units 18:16 18:18 WBC (4.8-10.8) K/ul RBC (4.20-5.40) M/uL Hgb (12.0-16.0) g/dl Hct (37.0-47.0) % MCV (80.0-100.0) fL MCH (25.0-34.0) pg MCHC (32.0-36.0) g/dL RDW Std Deviation (36.4-46.3) fL RDW Coeff of Tiffany (11.5-14.5) % Plt Count (130-400) K/uL MPV (9.4-12.4) fL Immature Gran % (Auto) % Neut % (Auto) % Lymph % (Auto) % Roosevelt % (Auto) % Eos % (Auto) % Baso % (Auto) % Neut # (Auto) (1.40-6.50) K/uL Lymph # (Auto) (1.20-3.40) K/uL Roosevelt # (Auto) (0.11-0.59) K/uL Eos # (Auto) (0.00-0.50) K/uL Baso # (Auto) (0.00-0.20) K/uL Immature Gran # (Auto) (0.01-0.20) K/uL PT (9.0-12.0) Seconds INR (0.9-1.1) APTT (21.0-31.0) Seconds PTT Ratio D-Dimer (0-500) ug/L FEU Sodium (136-145) mmol/L Potassium (3.5-5.1) mmol/L Chloride (98-107) mmol/L Carbon Dioxide (21-32) mmol/L Anion Gap (3-11) BUN (6-23) mg/dl Creatinine (0.6-1.2) mg/dl Est Cr Clr Drug Dosing ml/min Est GFR ( Amer) ml/min Est GFR (Non-Af Amer) ml/min BUN/Creatinine Ratio (10-20) Glucose (70-99(Fasting)) mg/dl Calcium (8.6-10.3) mg/dl Magnesium (1.7-2.4) mg/dl Total Bilirubin (0.2-1.0) mg/dl AST (13-39) U/L ALT (7-52) U/L Alkaline Phosphatase (34-104) U/L Troponin I High Sens (0-14) pg/ml Total Protein (6.0-8.3) gm/dl Albumin (3.4-5.0) gm/dl Globulin (2.5-4.0) gm/dl Albumin/Globulin Ratio (0.9-2) Procalcitonin < 0.05 (0-0.5) ng/ml Adenovirus (PCR) Not Detected (NotDetected) B. pertussis DNA (PCR) Not Detected (NotDetected) B.parapertussis DNA PCR Not Detected (NotDetected) C. pneumoniae DNA (PCR) Not Detected (NotDetected) Coronavirus OC43 (PCR) Not Detected (NotDetected) Coronavirus HKU1 (PCR) Not Detected (NotDetected) Coronavirus 229E (PCR) Not Detected (NotDetected) SARS-CoV-2 (PCR) Not Detected (NotDetected) Coronavirus NL63 (PCR) Not Detected (NotDetected) Human Metapneumovir PCR Not Detected (NotDetected) Influenza Type A (PCR) Not Detected (NotDetected) Influenza Type B (PCR) Not Detected (NotDetected) M. pneumoniae (PCR) Not Detected (NotDetected) Parainfluenza 1 (PCR) Not Detected (NotDetected) Parainfluenza 2 (PCR) Not Detected (NotDetected) Parainfluenza 3 (PCR) Not Detected (NotDetected) Parainfluenza 4 (PCR) Not Detected (NotDetected) RSV (PCR) Not Detected (NotDetected) Entero/Rhino (PCR) DETECTED A* (NotDetected) Administered Medications Doxycycline Hyclate 100 mg/ (Dextrose) 100 mls @ 50 mls/hr IV Q12H MARLEN Stop: 12/30/22 19:29 Last Admin: 12/28/22 20:08 Dose: 50 mls/hr Documented By: ANTONIA Discontinued Medications Acetaminophen (Acetaminophen 500 Mg Tab) 1,000 mg PO NOW STA Stop: 12/28/22 17:32 Last Admin: 12/28/22 18:52 Dose: 1,000 mg Documented By: ANTONIA Albuterol (Albut/Ipratrop 3mg/0.5mg Neb 3 Ml Vial) 12 ml NEB ONE ONE; Protocol Stop: 12/28/22 16:10 Last Admin: 12/28/22 17:15 Dose: 12 ml Documented By: JOSE Dexamethasone Sodium Phosphate (DexamethasonePf 10 Mg/Ml Vial) 10 mg IV NOW ONE Stop: 12/28/22 17:31 Last Admin: 12/28/22 18:52 Dose: 10 mg Documented By: ANTONIA Hydrocodone Bit/Homatropine Methylb (Hydrocodone/Homatropine Syrup 5mg/1.5mg 5ml Udp) 5 ml PO NOW STA Stop: 12/28/22 20:01 Last Admin: 12/28/22 20:14 Dose: 5 ml Documented By: ANTONIA Magnesium Sulfate/Dextrose (Magnesium Sulfate / D5w) 1 gm in 100 mls @ 50 mls/hr IV Q2H MARLEN Stop: 12/28/22 21:29 Last Admin: 12/28/22 20:48 Dose: 50 mls/hr Documented By: Infusion: 12/28/22 20:48 Dose: 50 mls/hr Documented By: Admin: 12/28/22 18:52 Dose: 50 mls/hr Documented By: ANTONIA Ceftriaxone Sodium (Rocephin) 2,000 mg in 70 mls @ 140 mls/hr IV NOW STA Stop: 12/28/22 19:47 Last Infusion: 12/28/22 21:18 Dose: 140 mls/hr Documented By: Admin: 12/28/22 20:46 Dose: 140 mls/hr Documented By: CEK Ioversol (Optiray 320 500ml) 104 ml IV ONCE ONE Stop: 12/28/22 20:23 Last Admin: 12/28/22 20:23 Dose: 104 ml Documented By: AYSE Imaging Data Radiologist's Impression: Chest X-Ray 12/28/22 16:07 XR chest 2V PA/lateral HISTORY: Dyspnea COMPARISON: Chest 09/08/2020. FINDINGS: No pneumothorax. No pleural effusions. Cervical spinal fusion hardware is noted. The cortex was normal in size. There are low lung volumes. No acute fractures identified. A few scattered linear and patchy densities within the right middle lobe and lingula. These have progressed in the interval. This is best seen on the lateral view. IMPRESSION: A few scattered linear and patchy densities within the right middle lobe and lingula which have progressed in the interval. This could be due to a developing pneumonia, scarring, or atelectasis. ACT 112: Negative or not required by law. Electronically signed by: Geronimo Vaca M.D. 12/28/2022 5:08 PM Chest CTA 12/28/22 17:23 Exam(s): CTA CHEST IV Amt: 104ml EXAM: CT Chest With Intravenous Contrast CLINICAL HISTORY: Reason for exam: Hypoxia, ? pe vs pna. TECHNIQUE: Axial computed tomographic images of the chest with intravenous contrast. CTDI is 37.9 mGy and DLP is 887.44 mGy-cm. Automated exposure control was utilized for the study. A dose lowering technique was utilized adhering to the principles of ALARA. COMPARISON: No relevant prior studies available. FINDINGS: Pulmonary arteries: Unremarkable. No CT evidence of pulmonary embolism. Aorta: No acute findings. No thoracic aortic aneurysm. Lungs: Patchy central groundglass opacities throughout bilateral lungs. The distribution is more central than typically seen for Covid pneumonia but it remains in the differential. Fluid overload also be in the differential. Pleural space: Unremarkable. No significant effusion. No pneumothorax. Heart: Unremarkable. No cardiomegaly. No significant pericardial effusion. No evidence of RV dysfunction. Thyroid: Likely status post thyroidectomy. There is a 1.8 cm soft tissue anterior to the trachea in the thyroid bed. Correlate further with thyroid surgical history and ultrasound if clinically warranted. Bones/joints: No acute fracture. No dislocation. Soft tissues: Unremarkable. Lymph nodes: Unremarkable. No enlarged lymph nodes. IMPRESSION: 1. No CT evidence of pulmonary embolism. 2. Patchy central groundglass opacities throughout bilateral lungs. The distribution is more central than typically seen for Covid pneumonia but it remains in the differential. Fluid overload also be in the differential. 3. Likely status post thyroidectomy. There is a 1.8 cm soft tissue anterior to the trachea in the thyroid bed. Correlate further with thyroid surgical history and ultrasound if clinically warranted. Electronically signed by: Osman Arvizu M.D. 12/28/22 21:19 PM Discharge Plan Visit Data Chief Complaint: Shortness of Breath/Dyspnea Stated Complaint: SHORTNESS OF BREATH ED Provider: Monty Castillo Discharge Problem: Shortness of breath, Reactive airway disease, Hypoxia Forms Stand Alone Forms: My [facility] [place] [employer] Prescriptions Prescriptions: No Action Tresiba FlexTouch U-200 200 unit/mL (3 mL) insulin pen 100 unit SQ QAM 90 Days Qty: 45 3RF Novolin R Regular U100 Insulin 100 unit/mL solution See Rx Instructions .ROUTE .COMPLEX Qty: 30 5RF Rx Instructions: Inject three times a day with meals. TDD 100 units.; semaglutide 1 mg/dose (4 mg/3 mL) pen injector 1 mg subcut .q7 30 Days Qty: 3 1RF levothyroxine [Synthroid] 200 mcg tablet 200 mcg PO QAM Qty: 90 0RF ammonium lactate 12 % cream 1 appln TOP BID PRN (Reason: Dry Skin) Benlysta 120 mg recon soln 120 mg IV MONTHLY Rx Instructions: infusion for lupus Symbicort 160-4.5 mcg/actuation HFA aerosol inhaler 2 puffs INH BID tramadol 50 mg tablet 50 mg PO BID PRN (Reason: pain) Rx Instructions: 50-100mg PO every 6 hours PRN; venlafaxine 150 mg capsule,extended release 24hr 150 mg PO QAM Rx Instructions: Take with 75mg cap venlafaxine 75 mg capsule,extended release 24hr 75 mg PO QAM Rx Instructions: take with 150mg cap cholecalciferol (vitamin D3) 25 mcg (1,000 unit) capsule 2,000 units PO QAM (DME) pen needle, diabetic [BD Kimberly 2nd Gen Pen Needle] 32 gauge x 5/32" needle See Rx Instructions .ROUTE .MEDSUPPLY Rx Instructions: Inject twice daily with Victoza and Tresiba (DME) Dexcom G6 Sensor Device See Rx Instructions .Route Rx Instructions: As directed (DME) Dexcom G6 Transmitter Device See Rx Instructions .Route Rx Instructions: As directed atorvastatin 80 mg tablet 80 mg PO DAILY Referrals Referrals: Do Javed MD [Primary Care Provider] -
[2022-12-28 18:49] LABS: Basophils # (auto) 0.05 K/uL (0.00-0.20); Basophils % (auto) 0.3 %; Eosinophils % (auto) 0.6 %; Hematocrit (blood only) 43.4 % (37.0-47.0); Hemoglobin 14.7 g/dl (12.0-16.0); Immature Granulocytes # (auto) 0.07 K/uL (0.01-0.20); Immature Granulocytes % (auto) 0.4 %; Lymphocytes # (auto) 3.31 K/uL (1.20-3.40); Lymphocytes % (auto) 18.3 %; Mean Corpuscular Hemoglobin 32.2 pg (25.0-34.0); Mean Corpuscular Hgb Conc 33.9 g/dL (32.0-36.0); Mean Platelet Volume 9.9 fL (9.4-12.4); Monocytes # (auto) 1.17 K/uL (0.11-0.59); Monocytes % (auto) 6.5 %; Neutrophils # (auto) 13.41 K/uL (1.40-6.50); Neutrophils % (auto) 73.9 %; Platelet Count 341 K/uL (130-400); RDW Coefficient of Variation 12.8 % (11.5-14.5); RDW Standard Deviation 44.5 fL (36.4-46.3); Red Blood Count 4.57 M/uL (4.20-5.40); White Blood Count 18.11 K/ul (4.8-10.8)
[2022-12-28] MEDS: MAGNESIUM SULFATE / D5W 1 GM/100 ML BAG IV SCH ×2 (18:52→20:48)
[2022-12-28 19:14] LABS: Albumin Globulin Ratio 1.3 (0.9-2); Albumin Level 4.2 gm/dl (3.4-5.0); Bilirubin,Total 1.1 mg/dl (0.2-1.0); Calcium 9.5 mg/dl (8.6-10.3); Creatinine Clr Calc Pharmacy 114.5 ml/min; Est GFR (Non-African American) 87.2 ml/min; Globulin 3.2 gm/dl (2.5-4.0); Potassium 3.6 mmol/L (3.5-5.1); Total Protein 7.4 gm/dl (6.0-8.3)
[2022-12-28] MEDS ORDERED: cefTRIAXone SODIUM 2,000 MG/70 ML BAG IV STA (19:18)
[2022-12-28 19:19] LABS: Troponin I High Sensitivity 3.2 pg/ml (0-14)
[2022-12-28 19:28] LABS: D Dimer 310 ug/L FEU (0-500); Partial Thromboplastin Ratio 0.9; Partial Thromboplastin Time 24.8 Seconds (21.0-31.0); Prothrombin Time 10.9 Seconds (9.0-12.0)
[2022-12-28] MEDS ORDERED: DOXYCYCLINE HYCLATE 100 MG in DEXTROSE 5% MINI-B 100 ML IV SCH (19:30)
[2022-12-28 19:37] LABS: Adenovirus PCR Not Detected (NotDetected); Bordetella parapertussis PCR Not Detected (NotDetected); Bordetella pertussis PCR Not Detected (NotDetected); Chlamydia pneumoniae PCR Not Detected (NotDetected); Coronavirus 229E PCR Not Detected (NotDetected); Coronavirus CoV-2 (COVID19)PCR Not Detected (NotDetected); Coronavirus HKU1 PCR Not Detected (NotDetected); Coronavirus NL63 PCR Not Detected (NotDetected); Coronavirus OC43PCR Not Detected (NotDetected); Human Metapneumovirus PCR Not Detected (NotDetected); Influenza A PCR Not Detected (NotDetected); Influenza B PCR Not Detected (NotDetected); Mycoplasma pneumoniae PCR Not Detected (NotDetected); Parainfluenza Virus 1 PCR Not Detected (NotDetected); Parainfluenza Virus 2 PCR Not Detected (NotDetected); Parainfluenza Virus 3 PCR Not Detected (NotDetected); Parainfluenza Virus 4 PCR Not Detected (NotDetected); Respiratory Syncytial VirusPCR Not Detected (NotDetected)
[2022-12-28 19:54] LABS: Rhinovirus/Enterovirus PCR DETECTED (NotDetected)
[2022-12-28] MEDS ORDERED: HYDROcodone/HOMATROPINE SYRUP 5MG/1.5MG 5ML UDP PO STA (20:00)
[2022-12-28] MEDS ORDERED: OPTIRAY 320 500ml IV ONE (20:22)
[2022-12-28] MEDS ORDERED: NSS + 20MEQ KCL 20 MEQ/1,000 ML BAG IV ONE (20:31)
--- NOTE | 2022-12-28 20:36 | History & Physical Report ---
Date of Service December 28, 2022 Assessment & Plan (1) Hypoxia: (2) Asthma exacerbation: (3) URI (upper respiratory infection): (4) Type 1 diabetes mellitus, uncontrolled: (5) Hypothyroidism, postablative: (6) Dyslipidemia: (7) Lupus: Plan This is a 47-year-old female with PMH of type 1 diabetes, hypothyroidism, SLE, anxiety, hyperlipidemia, asthma, gastroparesis, sciatica and other medical problems as below presents with worsening shortness of breath and congestion over the past few days and was found to have URI, asthma exacerbation and possible PNA. Please see. Dr. Dillon's addendum for assessment and plan. History of Present Illness Chief Complaint: Shortness of breath Primary Care Provider: Do Javed MD This is a 47-year-old female with PMH of type 1 diabetes, hypothyroidism, SLE, anxiety, hyperlipidemia, asthma, gastroparesis, sciatica and other medical problems as below presents with worsening shortness of breath and congestion over the past few days. Has had URI symptoms of cough, congestion, subjective fever and SOB over the past week and has since developed wheezing. At PCP today pulse ox was 84% on room air and was sent to ED for further evaluation. Pulse ox has remained around 91% on room air since arrival. Feels slightly better after nebulizer treatment in ED. Has been using Symbicort and rescue albuterol inhaler frequently over the past few days. Had Benlysta injection yesterday for SLE. No headache, lightheadedness, CP, N/V, abdominal pain, dysuria, diarrhea or co nstipation. Allergies Allergy/AdvReac Type Severity Reaction Status Date / Time No Known Drug Allergies Allergy Verified 07/29/22 11:23 Home Medications Medication Instructions Recorded Confirmed Type ammonium lactate 12 % topical cream 1 appln topical BID PRN Dry Skin 02/12/19 12/28/22 History belimumab 120 mg intravenous 120 mg IV MONTHLY 02/12/19 12/28/22 History solution (Benlysta) budesonide-formoterol HFA 160 2 puffs inhalation BID 02/12/19 12/28/22 History mcg-4.5 mcg/actuation aerosol inhaler (Symbicort) tramadol 50 mg tablet 50 mg PO BID PRN pain 02/12/19 12/28/22 History venlafaxine 150 mg 150 mg PO QAM 02/12/19 12/28/22 History capsule,extended release 24 hr venlafaxine 75 mg capsule,extended 75 mg PO QAM 02/12/19 12/28/22 History release 24 hr cholecalciferol (vitamin D3) 25 2,000 units PO QAM 07/26/19 12/28/22 History mcg (1,000 unit) capsule blood-glucose sensor (Dexcom G6 04/09/21 12/28/22 History Sensor device) blood-glucose transmitter (Dexcom 04/09/21 12/28/22 History G6 Transmitter device) pen needle, diabetic 32 gauge x 04/09/21 12/28/22 History 5/32" (BD Kimberly 2nd Gen Pen Needle) insulin degludec 200 unit/mL (3 100 unit (0.5 mL) subcut QAM 90 03/24/2212/19 Rx mL) subcutaneous pen ( #45 mL FlexTouch U-200 insulin) insulin regular human 100 unit/mL See Rx Instructions .Route 06/30/22 12/28/22 Rx injection solution (Novolin R .COMPLEX #30 mL Regular U-100 Insulin) semaglutide 1 mg/dose (4 mg/3 mL) 1 mg (0.75 mL) subcut .q7 30 days 11/24/22 12/28/22 Rx subcutaneous pen injector #3 mL levothyroxine 200 mcg tablet 200 mcg PO QAM #90 tabs 12/10/22 12/28/22 Rx (Synthroid) atorvastatin 80 mg tablet 80 mg PO DAILY 12/28/22 12/28/22 History Past Med/Surg History Medical History (Updated 12/28/22 @ 21:29 by Emilie Booth PA-C) Asthma Daily Symbicort, has not needed rescue ProAir in years Diabetic peripheral neuropathy associated with type 1 diabetes mellitus Dyslipidemia GERD (gastroesophageal reflux disease) History of COVID-19 06/2020 ache, pain, nausea, headache, loss smell and taste, quarantine had antibody infusion due to lupus History of hyperthyroidism Hypothyroidism, postablative Lupus Osteoarthritis RLS (restless legs syndrome) Surgical History History of lumbar fusion History of partial hysterectomy Hx laparoscopic cholecystectomy Hx of section x 2 Hx of tonsillectomy Hx of ventral hernia repair x 3 PONV (postoperative nausea and vomiting) Family History (Updated 12/28/22 @ 20:34 by Emilie Booth PA-C) Other Breast cancer Social History Smoking Status: Current every day smoker Tobacco Type: Cigarettes packs per day: 0.5; Cigarettes Per Day: 1/2 ppd; Second Hand Exposure: No; Do You Dip or Chew Tobacco: No; Hx Alcohol Use: No Hx Substance Use: No Preferred Language: Mongolian Communication Ability: Effective Engineering Manager Required: No Beliefs That Will Affect Care: None marital status: Current Living Situation: Family Feels Safe at Home: Yes Safety Concerns: Feels Safe At This Time Assistive Devices: None Review of Systems Review of Systems: At least ten systems reviewed and negative except as noted in the HPI. Physical Exam Physical Exam: General Appearance: WD/WN, vitals as above, NAD, sitting in bedside chair, pleasant, conversing easily Head: normocephalic, atraumatic Eyes: normal inspection, PERRL, conjunctivae normal, anicteric sclerae ENT: external ear and nose normal, oropharynx normal Neck: normal visual inspection, trachea midline, no thyromegaly Respiratory: increased respiratory effort, scattered inspiratory and expiratory wheezes throughout lung multani, no rales. No accessory muscle use Cardiovascular: tachycardic rate, regular rhythm, no murmur, normal peripheral pulses, no BLE edema. Vessels: no JVD Chest: normal inspection of chest Abdomen/GI: normal bowel sounds, soft, nontender, no hepatosplenomegaly Extremities/Musculoskeletal: no cyanosis or clubbing, extremities motor strength 5/5 Neurologic: PERRL, EOMI, accommodation nl, no face palsy, no dysarthria, CN's II-XI intact bilaterally and moves all extremities Psychiatric: A+Ox3, euthymic affect Skin: no rashes, normal color, warm/dry Results & Data Results & Data Vital Signs (Past 12 Hours) Vital Signs Temp Pulse Pulse Resp BP BP Pulse Ox 12/28/22 20:00 96 H 20 133/59 L 91 12/28/22 18:48 98 H 22 98 12/28/22 18:48 93 H 22 112/57 L 98 12/28/22 18:48 98 12/28/22 17:17 93 H 12/28/22 17:16 92 H 22 93 12/28/22 16:06 36.5 C 98 H 20 115/77 95 O2 Del Method O2 Flow Rate 12/28/22 20:00 Room Air 12/28/22 18:48 Nebulizer 12/28/22 18:48 Nebulizer 12/28/22 18:48 Nebulizer 5 12/28/22 17:17 12/28/22 17:16 Nasal Cannula 4 12/28/22 16:06 Room Air Laboratory Results Short CBC 12/28/22 Range/Units 18:16 WBC 18.11 H (4.8-10.8) K/ul Hgb 14.7 (12.0-16.0) g/dl Hct 43.4 (37.0-47.0) % Plt Count 341 (130-400) K/uL BMP 12/28/22 18:16 Sodium 140 Potassium 3.6 Chloride 104 Carbon Dioxide 28 BUN 12 Creatinine 0.80 Glucose 203 H Calcium 9.5 Liver Function 12/28/22 Range/Units 18:16 Total Bilirubin 1.1 H (0.2-1.0) mg/dl AST 18 (13-39) U/L ALT 23 (7-52) U/L Alkaline Phosphatase 51 (34-104) U/L Albumin 4.2 (3.4-5.0) gm/dl Diagnostic Findings Chest X-Ray 12/28/22 16:07 XR chest 2V PA/lateral HISTORY: Dyspnea COMPARISON: Chest 09/08/2020. FINDINGS: No pneumothorax. No pleural effusions. Cervical spinal fusion hardware is noted. The cortex was normal in size. There are low lung volumes. No acute fractures identified. A few scattered linear and patchy densities within the right middle lobe and lingula. These have progressed in the interval. This is best seen on the lateral view. IMPRESSION: A few scattered linear and patchy densities within the right middle lobe and lingula which have progressed in the interval. This could be due to a developing pneumonia, scarring, or atelectasis. ACT 112: Negative or not required by law. Electronically signed by: Geronimo Vaca M.D. 12/28/2022 5:08 PM Supervising Physician Co-Signing Physician Notes IM ATTENDING : Patient seen and examined. History obtained from patient and records. Preceding documentation by Ms. Emilie Booth PA-C reviewed. In addition, patient gives history of coughing symptoms following meal intake. 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 Lovenox subcu Full code Text document was generated using [employer] voice recognition software. It may contain grammatical or spelling errors. Kindly contact undersigned for clarification of any documentation item in question. (4) Type 1 diabetes mellitus, uncontrolled Glycemic state: with hyperglycemia Qualified Code(s): E10.65 - Type 1 diabetes mellitus with hyperglycemia
[2022-12-28 20:42] LABS: Magnesium 1.7 mg/dl (1.7-2.4)
--- NOTE | 2022-12-28 21:20 | CT Scan Report ---
Exam(s): CTA CHEST IV Amt: 104ml EXAM: CT Chest With Intravenous Contrast CLINICAL HISTORY: Reason for exam: Hypoxia, ? pe vs pna. TECHNIQUE: Axial computed tomographic images of the chest with intravenous contrast. CTDI is 37.9 mGy and DLP is 887.44 mGy-cm. Automated exposure control was utilized for the study. A dose lowering technique was utilized adhering to the principles of ALARA. COMPARISON: No relevant prior studies available. FINDINGS: Pulmonary arteries: Unremarkable. No CT evidence of pulmonary embolism. Aorta: No acute findings. No thoracic aortic aneurysm. Lungs: Patchy central groundglass opacities throughout bilateral lungs. The distribution is more central than typically seen for Covid pneumonia but it remains in the differential. Fluid overload also be in the differential. Pleural space: Unremarkable. No significant effusion. No pneumothorax. Heart: Unremarkable. No cardiomegaly. No significant pericardial effusion. No evidence of RV dysfunction. Thyroid: Likely status post thyroidectomy. There is a 1.8 cm soft tissue anterior to the trachea in the thyroid bed. Correlate further with thyroid surgical history and ultrasound if clinically warranted. Bones/joints: No acute fracture. No dislocation. Soft tissues: Unremarkable. Lymph nodes: Unremarkable. No enlarged lymph nodes. IMPRESSION: 1. No CT evidence of pulmonary embolism. 2. Patchy central groundglass opacities throughout bilateral lungs. The distribution is more central than typically seen for Covid pneumonia but it remains in the differential. Fluid overload also be in the differential. 3. Likely status post thyroidectomy. There is a 1.8 cm soft tissue anterior to the trachea in the thyroid bed. Correlate further with thyroid surgical history and ultrasound if clinically warranted. Electronically signed by: Osman Arvizu M.D. 12/28/22 21:19 PM
[2022-12-28] MEDS ORDERED: AMPICILLIN/SULBACTAM SOD 3,000 MG in SODIUM CHLOR 0.9% MINI-B 100 ML IV STA (21:44)
[2022-12-28] MEDS ORDERED: guaiFENesin 600 MG TABCR PO STA (21:44)
[2022-12-28 21:46] LABS: Base Excess ABG -1.3 mEq/L (-9-1.8); HCO3 ABG 23 mmol/L (19-24); Oxygen Saturation ABG 92.5 % (90-95); PCO2 ABG 35 mmHg (35-46); PO2 ABG 61 mmHg (80-95); pH ABG 7.42 (7.35-7.45)
[2022-12-28] MEDS ORDERED: GLUCAGON FOR INJ 1 MG VIAL SQ PRN (21:50)
[2022-12-28] MEDS ORDERED: DEXTROSE 50% 50 ML SYRINGE IV PRN (21:50)
[2022-12-28] MEDS ORDERED: GLUCOSE 40% GEL 15 GM TUBE PO PRN (21:50)
[2022-12-28] MEDS ORDERED: LANTUS PER UNIT CHARGE SQ STA (21:50)
[2022-12-28] MEDS ORDERED: CARBOHYDRATES FOR HYPOGLYCEMIA PO PRN (21:50)
[2022-12-28] MEDS ORDERED: GLUCOSE 10 TAB/TUBE PO PRN (21:50)
[2022-12-28 21:53] LABS: Allen Test Pos (Pos)
[2022-12-28] MEDS: INSULIN ASPART PER UNIT CHARGE SC SCH (22:27)
[2022-12-28 22:57] LABS: Thyroid Stimulating Hormone 0.035 uIu/ml (0.300-4.500)
[2022-12-28 23:38] LABS: T4 Free Thyroxine 1.18 ng/dl (0.61-1.60)
[2022-12-29 00:14] LABS: Estimated Average Glucose 206 mg/dl; Hemoglobin A1C 8.8 % (4.5-5.6)
[2022-12-29] MEDS ORDERED: PROMETHAZINE HCL 12.5 MG in SODIUM CHLORIDE 0.9% 50 ML IV PRN (00:29)
[2022-12-29] MEDS ORDERED: ACETAMINOPHEN 325 MG TAB PO PRN (00:29)
[2022-12-29] MEDS ORDERED: oxyCODONE HCL IR 5 MG TAB (IMMEDIATE RELEASE) PO PRN (00:29)
[2022-12-29] MEDS ORDERED: LORazepam 0.5 MG TAB PO PRN (00:29)
[2022-12-29 01:00] LABS: Hematocrit (blood only) 40.8 % (37.0-47.0); Hemoglobin 13.9 g/dl (12.0-16.0); Mean Corpuscular Hgb Conc 34.1 g/dL (32.0-36.0); Mean Corpuscular Volume 93.8 fL (80.0-100.0); Mean Platelet Volume 9.9 fL (9.4-12.4); Platelet Count 291 K/uL (130-400); RDW Coefficient of Variation 12.8 % (11.5-14.5); Red Blood Count 4.35 M/uL (4.20-5.40); White Blood Count 13.56 K/ul (4.8-10.8)
[2022-12-29 01:23] LABS: BUN Creatinine Ratio 14.6 (10-20); Calcium 9.1 mg/dl (8.6-10.3); Creatinine Clr Calc Pharmacy 111.7 ml/min; Est GFR (African American) 98.1 ml/min; Est GFR (Non-African American) 84.6 ml/min; Potassium 4.7 mmol/L (3.5-5.1)
[2022-12-29 01:30] LABS: Basophils # (auto) 0.01 K/uL (0.00-0.20); Basophils % (auto) 0.1 %; Immature Granulocytes # (auto) 0.04 K/uL (0.01-0.20); Immature Granulocytes % (auto) 0.3 %; Lymphocytes # (auto) 0.65 K/uL (1.20-3.40); Lymphocytes % (auto) 4.8 %; Monocytes # (auto) 0.15 K/uL (0.11-0.59); Monocytes % (auto) 1.1 %; Neutrophils # (auto) 12.71 K/uL (1.40-6.50); Neutrophils % (auto) 93.7 %; RBC Morphology Unremarkable
[2022-12-29] MEDS ORDERED: SODIUM CHLORIDE 0.9% 1,000 ML IV ONE (02:06)
[2022-12-29] MEDS ORDERED: LANTUS PER UNIT CHARGE SQ STA (02:07)
[2022-12-29] MEDS ORDERED: LACTATED RINGER'S 1,000 ML IV ONE ×2 (03:00→06:31)
[2022-12-29] MEDS ORDERED: LEVOTHYROXINE SODIUM 200 MCG TABLET PO SCH (06:30)
[2022-12-29] MEDS ORDERED: AMOXICILLIN/CLAVULANATE 875 MG TAB PO SCH (08:00)
[2022-12-29] MEDS ORDERED: LANTUS PER UNIT CHARGE SC SCH (09:00)
[2022-12-29] MEDS ORDERED: VENLAFAXINE HCL XR 150 MG CAPXR PO SCH (09:00)
[2022-12-29] MEDS ORDERED: FLUTICASONE/VILANTEROL 200/25MCG 14 PUFFS/INHALER INH SCH (09:00)
[2022-12-29] MEDS ORDERED: ENOXAPARIN INJ 40 MG/0.4 ML SYR SQ SCH (09:00)
[2022-12-29] MEDS ORDERED: VENLAFAXINE HCL XR 75 MG CAPXR PO SCH (09:00)
[2022-12-29] MEDS ORDERED: guaiFENesin 600 MG TABCR PO SCH (09:00)
[2022-12-29] MEDS ORDERED: predniSONE 20 MG TAB PO SCH (09:00)
[2022-12-29] MEDS ORDERED: ATORVASTATIN 40 MG TAB PO SCH (09:00)
[2022-12-29] MEDS: INSULIN ASPART PER UNIT CHARGE SC SCH ×2 (09:20→12:28)
[2022-12-29] MEDS: ALBUT/IPRATROP 3MG/0.5MG NEB 3 ML VIAL NEB SCH ×2 (12:28→14:54)
--- NOTE | 2022-12-29 16:11 | Electrocardiogram Report ---
Test Reason : Blood Pressure : / mmHG Vent. Rate : 089 BPM Atrial Rate : 089 BPM P-R Int : 156 ms QRS Dur : 096 ms QT Int : 358 ms P-R-T Axes : 032 009 055 degrees QTc Int : 435 ms Normal sinus rhythm Poor R wave progression, consider anterior WA vs. lead placement vs. LVH Abnormal ECG When compared with ECG of 08-SEP-2020 13:01, No significant change was found Confirmed by Dilip Ko ([id number]) on 12/29/2022 4:11:22 PM Referred By: Do Javed Confirmed By:Dilip Ko
--- NOTE | 2022-12-29 16:33 | Discharge Summary ---
Date of Service December 29, 2022 Admission HPI Per Admitting Provider This is a 47-year-old female with PMH of type 1 diabetes, hypothyroidism, SLE, anxiety, hyperlipidemia, asthma, gastroparesis, sciatica and other medical problems as below presents with worsening shortness of breath and congestion over the past few days. Has had URI symptoms of cough, congestion, subjective fever and SOB over the past week and has since developed wheezing. At PCP today pulse ox was 84% on room air and was sent to ED for further evaluation. Pulse ox has remained around 91% on room air since arrival. Feels slightly better after nebulizer treatment in ED. Has been using Symbicort and rescue albuterol inhaler frequently over the past few days. Had Benlysta injection yesterday for SLE. No headache, lightheadedness, CP, N/V, abdominal pain, dysuria, diarrhea or constipation. Admission Exam Per Admitting Provider General Appearance:WD/WN, vitals as above, NAD, sitting in bedside chair, pleasant, conversing easily Head: normocephalic, atraumatic Eyes:normal inspection, PERRL, conjunctivae normal, anicteric sclerae ENT: external ear and nose normal, oropharynx normal Neck: normal visual inspection, trachea midline, no thyromegaly Respiratory:increased respiratory effort, scattered inspiratory and expiratory wheezes throughout lung multani, no rales. No accessory muscle use Cardiovascular:tachycardic rate, regular rhythm, no murmur, normal peripheral pulses, no BLE edema. Vessels: no JVD Chest: normal inspection of chest Abdomen/GI: normal bowel sounds, soft, nontender, no hepatosplenomegaly Extremities/Musculoskeletal: no cyanosis or clubbing, extremities motor strength 5/5 Neurologic: PERRL, EOMI, accommodation nl, no face palsy, no dysarthria, CN's II-XI intact bilaterally and moves all extremities Psychiatric:A+Ox3, euthymic affect Skin: no rashes, normal color, warm/dry Principal Diagnosis Asthma exacerbation Pneumonia Discharge Exam General Appearance:Obese, no apparent distress Head: normocephalic, Atraumatic Eyes: normal inspection, EOMI Neck: supple, Trachea midline Respiratory/Chest: Occasional wheeze Cardiovascular: S1, S2, No murmur Abdomen/GI:Soft, Non tender, Bowel sounds present Extremities/Musculoskeletal:normal inspection, no edema Neurologic/Psych:AAOX3, grossly no focal neurological deficits Skin: normal color, warm Discharge Data Allergies Allergy/AdvReac Type Severity Reaction Status Date / Time No Known Drug Allergies Allergy Verified 07/29/22 11:23 Ordered Studies 12/28/22 17:23 CT angio chest PE protocol Stat Hospital Course (1) Hypoxia: (2) Asthma exacerbation: (3) URI (upper respiratory infection): (4) Type 1 diabetes mellitus, uncontrolled: (5) Hypothyroidism, postablative: (6) Dyslipidemia: (7) Lupus: Plan This is a 47-year-old female with PMH of type 1 diabetes, hypothyroidism, SLE, anxiety, hyperlipidemia, asthma, gastroparesis, sciatica and other medical problems as below presents with worsening shortness of breath and congestion over the past few days. Bio fire was positive for rhinovirus CTA chest was negative for PE; bilateral patchy opacities were seen. Patient was admitted for asthma exacerbation. She was started on [id number] DuoNebs, steroids and antibiotics. Patient reported improvement in the symptoms overnight. She was prescribed antibiotics, prednisone, cefdinir and azithromycin. She was also prescribed DuoNeb solution to be used at home. Patient to follow-up with her PCP after discharge. Total Time Total Time Spent Total Time Spent (In Minutes): 45 Total Time Includes: Examination of the Patient, Discharge Planning, Medication Reconciliation, Communication With Other Providers and Other Discharge Plan Discharge Items Patient Disposition: Home - Self-Care Reason For Visit: RESP FAILURE Discharge Diagnosis: Asthma exacerbation Activity: Resume your previous activity Non-emergency contact: Primary Care Provider Call non-emergency contact if: you have any medication questions Follow-up/Referrals: Do Javed MD [Primary Care Provider] - Diet: Regular Addtl Attending Provider Instructions: You were admitted to the hospital due to asthma exacerbation. You are prescribed following medications: 1) DuoNeb solution with ipratropium and albuterol. Please use this every 8 hours for next 3 days 2) prednisone 20 mg once a day for 3 days 3) azithromycin 500 mg once a day for 3 days 4) cefdinir 500 mg twice a day for for 5 days An appointment will be set up with your primary care doctor for sometime next week. CT of the chest showed 1.8 cm soft tissue anterior to the trachea on the thyroid bed. Please discuss with your corporate trainer regarding obtaining ultrasound to further evaluate it. Your TSH was found to be on the lower side with normal free T4. You will need repeat TSH done as outpatient. Pending Studies at Discharge: No Stand-Alone Forms: My [facility], Smoking Cessation Medications and DC Order Prescriptions: New ipratropium-albuterol 0.5 mg-3 mg(2.5 mg base)/3 mL Solution For Nebulization 3 ml NEB QIDR 3 Days Qty: 90 0RF prednisone 20 mg Tablet 20 mg PO DAILY 3 Days Qty: 3 0RF cefdinir 300 mg capsule 300 mg PO BID 5 Days Qty: 10 0RF azithromycin 500 mg tablet 500 mg PO DAILY 3 Days Qty: 3 0RF Continued Tresiba FlexTouch U-200 200 unit/mL (3 mL) insulin pen 100 unit SQ QAM 90 Days Qty: 45 3RF Novolin R Regular U100 Insulin 100 unit/mL solution See Rx Instructions .ROUTE .COMPLEX Qty: 30 5RF Rx Instructions: Inject three times a day with meals. TDD 100 units.; semaglutide 1 mg/dose (4 mg/3 mL) pen injector 1 mg subcut .q7 30 Days Qty: 3 1RF levothyroxine [Synthroid] 200 mcg tablet 200 mcg PO QAM Qty: 90 0RF ammonium lactate 12 % cream 1 appln TOP BID PRN (Reason: Dry Skin) Benlysta 120 mg recon soln 120 mg IV MONTHLY Rx Instructions: infusion for lupus Symbicort 160-4.5 mcg/actuation HFA aerosol inhaler 2 puffs INH BID tramadol 50 mg tablet 50 mg PO BID PRN (Reason: pain) Rx Instructions: 50-100mg PO every 6 hours PRN; venlafaxine 150 mg capsule,extended release 24hr 150 mg PO QAM Rx Instructions: Take with 75mg cap venlafaxine 75 mg capsule,extended release 24hr 75 mg PO QAM Rx Instructions: take with 150mg cap cholecalciferol (vitamin D3) 25 mcg (1,000 unit) capsule 2,000 units PO QAM (DME) pen needle, diabetic [BD Kimberly 2nd Gen Pen Needle] 32 gauge x 5/32" needle See Rx Instructions .ROUTE .MEDSUPPLY Rx Instructions: Inject twice daily with Victoza and Tresiba (DME) Dexcom G6 Sensor Device See Rx Instructions .Route Rx Instructions: As directed (DME) Dexcom G6 Transmitter Device See Rx Instructions .Route Rx Instructions: As directed atorvastatin 80 mg tablet 80 mg PO DAILY Discharge Orders: Discharge Order (Routine); Ordered 12/29/22 Ordered By: Jae Wooten Admission Data Admit Date/Time: 12/28/22 21:48 Attending Provider: Jae Wooten Admit Provider: Sha Dillon Primary Care Provider: Do Javed
--- NOTE | 2023-01-03 11:35 | Coding Query ---
To promote full compliance with coding requirements relating to patient care, provider participation is requested in all cases of counter top maker uncertainty. Please assist us with the question(s) below: Coding Question(s): The diagnosis(es) below was documented in the H&P, then subsequently fell off all further documentation. Please indicate if it is still a possible diagnosis or ruled out. Physician's Response(s): SEVERE SEPSIS (documented on H&P) ( ) Diagnosed and POA ( ) Diagnosed and not POA ( X ) Ruled out ( ) Other (please specify) ASPIRATION PNEUMONIA (documented on H&P, the Discharge Summary documents Pneumonia, but not specifically Aspiration Pneumonia) ( ) Diagnosed and POA ( ) Diagnosed and not POA ( X ) Ruled out ( ) Other (please specify) HYPOXEMIC RESPIRATORY FAILURE (regarding Respiratory Failure, documented only on H&P) ( ) Diagnosed and POA. Please specify further below, in your clinical opinion, regarding Respiratory Failure: ( X ) Likely Acute Respiratory Failure ( ) Likely Chronic Respiratory Failure ( ) Likely Acute on Chronic Respiratory Failure ( ) Other: Please Specify ( ) Diagnosed and not POA. Please specify further below, in your clinical opinion, regarding Respiratory Failure: ( ) Likely Acute Respiratory Failure ( ) Likely Chronic Respiratory Failure ( ) Likely Acute on Chronic Respiratory Failure ( ) Other: Please Specify ( ) Ruled out ( ) Other (please specify) MTDD
== END 2022-12-29 16:55 | disposition home or self-care (01) | DRG 202 ==
LOC: ED 15:53 → INTOOBSV 21:48 → EDINP 21:48